=== PATIENT | male | born 1955 | race Caucasian/White ===

== ENCOUNTER 2017-02-23 21:10 | Inpatient (IN) | payer MEDICARE ==
[~2017-02-23] VITALS: Ht 190.5 cm; Wt 100.0 kg
[~2017-02-23 21:10] MED LIST: ARIP15TA3 PO; DIVA500T69 PO; GABA-533 PO; LISI-661 PO; VITAD1000 PO
[2017-02-23 22:22] LABS: BASOPHILS # (AUTO) 0.06 K/uL (0.00-0.20); BASOPHILS % (AUTO) 0.7 % (0.0-2.0); EOSINOPHILS # (AUTO) 0.22 K/uL (0.00-0.70); EOSINOPHILS % (AUTO) 2.72 % (1.0-6.0); HEMATOCRIT 42.8 % (41-53); HEMOGLOBIN 14.3 g/dL (13.5-17.5); LYMPHOCYTES # (AUTO) 3.7 K/uL (1.0-4.8); LYMPHOCYTES % (AUTO) 44.2 % (22.0-44.0); MEAN CORPUSCULAR HEMOGLOBIN 29.5 pg (26.0-34.0); MEAN CORPUSCULAR HGB CONC 33.5 G/dL (31.0-37.0); MEAN CORPUSCULAR VOLUME 88 fL (80-100); MONOCYTES # (AUTO) 0.6 K/uL (0.1-1.0); MONOCYTES % (AUTO) 7.7 % (2.0-9.0); NEUTROPHILS # (AUTO) 3.7 K/uL (1.8-7.7); NEUTROPHILS % (AUTO) 44.7 % (40.0-70.0); PLATELET COUNT (AUTO) 196 K/uL (150-450); RED BLOOD CELL COUNT(AUTO) 4.85 MIL/uL (4.50-5.90); RED CELL DISTRIBUTION WIDTH 14.6 % (11.5-14.5); WHITE BLOOD COUNT (AUTO) 8.3 K/uL (4.5-11.0)
[2017-02-23 22:27] LABS: ANION GAP 7 mmol/L (8-16); CALCIUM, TOTAL 8.5 mg/dL (8.8-10.5); CARBON DIOXIDE 29 mmol/L (22-29); CHLORIDE 107 mmol/L (98-107); CREATININE 0.85 mg/dL (0.60-1.30); GLOMERULAR FILTR. RATE CALC > 60 mL/min (>60); POTASSIUM 3.5 mmol/L (3.5-5.1); SODIUM SERUM 143 mmol/L (136-145); UREA NITROGEN, BLOOD 25 mg/dL (7-18)
[2017-02-23 22:33] LABS: ALANINE AMINOTRANSFERASE 10 U/L (12-78); ALBUMIN 3.4 g/dL (3.4-5.0); ASPARTATE AMINOTRANSFERASE 12 U/L (15-37); BILIRUBIN,TOTAL 0.5 mg/dL (0.1-1.0)
[2017-02-24] MEDS ORDERED: LORazepam 2 MG TABLET PO PRN (03:45)
[2017-02-24] MEDS ORDERED: QUEtiapine FUMARATE 100 MG TABLET PO PRN (03:45)
[2017-02-24] MEDS ORDERED: ZOLPIDEM TARTRATE 10 MG TABLET PO PRN (03:45)
[2017-02-24] MEDS ORDERED: ACETAMINOPHEN 325 MG TABLET PO PRN (10:15)
[2017-02-24] MEDS ORDERED: GuaiFENesin/D-METHORPHAN [SUGAR-FREE] 200-20MG/10 ML SYRUP UDCUP PO PRN (10:15)
[2017-02-24] MEDS ORDERED: LOPERAMIDE HCL 2 MG CAPSULE PO PRN (10:15)
[2017-02-24] MEDS ORDERED: MAG HYDROX/AL HYDROX/SIMETH ES 30 ML SUSPENSION UDCUP PO PRN (10:15)
[2017-02-24] MEDS ORDERED: MAGNESIUM HYDROXIDE SUSPENSION 30 ML UDCUP PO PRN (10:15)
[2017-02-24] MEDS ORDERED: HydrOXYzine PAMOATE 50 MG CAPSULE PO PRN (10:15)
[2017-02-24] MEDS ORDERED: PROMETHAZINE HCL 25 MG TABLET PO PRN (10:15)
[2017-02-24] MEDS: GABAPENTIN 300 MG CAPSULE PO SCH ×3 (12:43→20:45)
[2017-02-24 12:45] VITALS: BP 144/89
[2017-02-24 16:16] VITALS: BP 140/85
[2017-02-24] MEDS: THIAMINE HCL 100 MG TABLET PO SCH (16:26)
[2017-02-24] MEDS ORDERED: *PATIENT'S OWN MED [ENTER DRUG, DOSE, FREQUENCY IN COMMENTS] CLINICAL ONE ×2 (20:15)
[2017-02-24] MEDS: DIVALPROEX SODIUM 500 MG ER TABLET PO SCH (20:45)
[2017-02-25] MEDS ORDERED: PNEUMOCOCCAL VACCINE POLYVALENT 0.5 ML VIAL [PPSV23] IM ONE (05:15)
[2017-02-25 06:02] VITALS: BP 140/89
[2017-02-25 08:31] VITALS: BP 145/96
[2017-02-25] MEDS: NALTREXONE HCL 50 MG TABLET PO SCH (08:45)
[2017-02-25] MEDS: GABAPENTIN 300 MG CAPSULE PO SCH ×4 (08:45→20:34)
[2017-02-25] MEDS: FOLIC ACID 1 MG TABLET PO SCH (08:45)
[2017-02-25] MEDS: THIAMINE HCL 100 MG TABLET PO SCH ×2 (08:45→17:11)
[2017-02-25] MEDS: LISINOPRIL 10 MG TABLET PO SCH (08:45)
[2017-02-25] MEDS: MULTIVITAMINS WITH MINERALS, THERAPEUTIC TABLET PO SCH (08:45)
[2017-02-25] MEDS: ARIPiprazole 15 MG TABLET PO SCH (08:45)
[2017-02-25] MEDS: SOFOSBUVIR PO SCH (08:46)
[2017-02-25] MEDS: LEDIPASVIR PO SCH (08:46)
[2017-02-25] MEDS: DIVALPROEX SODIUM 500 MG ER TABLET PO SCH (20:34)
[2017-02-26 06:05] VITALS: BP 136/87
[2017-02-26 08:11] VITALS: BP 134/72
[2017-02-26] MEDS: NALTREXONE HCL 50 MG TABLET PO SCH (08:29)
[2017-02-26] MEDS: FOLIC ACID 1 MG TABLET PO SCH (08:29)
[2017-02-26] MEDS: GABAPENTIN 300 MG CAPSULE PO SCH ×4 (08:29→20:36)
[2017-02-26] MEDS: MULTIVITAMINS WITH MINERALS, THERAPEUTIC TABLET PO SCH (08:29)
[2017-02-26] MEDS: ARIPiprazole 15 MG TABLET PO SCH (08:29)
[2017-02-26] MEDS: LISINOPRIL 10 MG TABLET PO SCH (08:29)
[2017-02-26] MEDS: THIAMINE HCL 100 MG TABLET PO SCH ×2 (08:29→17:14)
[2017-02-26] MEDS: LEDIPASVIR PO SCH (08:30)
[2017-02-26] MEDS: SOFOSBUVIR PO SCH (08:30)
[2017-02-26] MEDS: CHOLECALCIFEROL (VIT D3) 1,000 UNITS TABLET PO SCH (10:02)
[2017-02-26 17:15] VITALS: BP 123/83
[2017-02-26] MEDS: DIVALPROEX SODIUM 500 MG ER TABLET PO SCH (20:36)
[2017-02-27 02:00] VITALS: BP 110/62
[2017-02-27 08:12] VITALS: BP 126/79
[2017-02-27] MEDS: ARIPiprazole 15 MG TABLET PO SCH (09:00)
[2017-02-27] MEDS: GABAPENTIN 300 MG CAPSULE PO SCH ×4 (09:00→20:35)
[2017-02-27] MEDS: FOLIC ACID 1 MG TABLET PO SCH (09:00)
[2017-02-27] MEDS: THIAMINE HCL 100 MG TABLET PO SCH ×2 (09:00→17:00)
[2017-02-27] MEDS: NALTREXONE HCL 50 MG TABLET PO SCH (09:00)
[2017-02-27] MEDS: CHOLECALCIFEROL (VIT D3) 1,000 UNITS TABLET PO SCH (09:00)
[2017-02-27] MEDS: LISINOPRIL 10 MG TABLET PO SCH (09:00)
[2017-02-27] MEDS: MULTIVITAMINS WITH MINERALS, THERAPEUTIC TABLET PO SCH (09:00)
[2017-02-27] MEDS: SOFOSBUVIR PO SCH (09:01)
[2017-02-27] MEDS: LEDIPASVIR PO SCH (09:01)
[2017-02-27] MEDS ORDERED: NALT50 PO (13:40)
[2017-02-27] MEDS ORDERED: ARIP15TA3 PO (13:40)
[2017-02-27] MEDS ORDERED: DIVA500T52 PO (13:40)
[2017-02-27] MEDS ORDERED: GABA-531 PO (13:40)
[2017-02-27 16:18] VITALS: BP 111/63
[2017-02-27] MEDS: DIVALPROEX SODIUM 500 MG ER TABLET PO SCH (20:35)
[2017-02-28 05:59] VITALS: BP 110/66
[2017-02-28] MEDS: LEDIPASVIR PO SCH (08:54)
[2017-02-28] MEDS: SOFOSBUVIR PO SCH (08:54)
[2017-02-28] MEDS: GABAPENTIN 300 MG CAPSULE PO SCH (09:00)
[2017-02-28] MEDS: THIAMINE HCL 100 MG TABLET PO SCH (09:00)
[2017-02-28] MEDS: NALTREXONE HCL 50 MG TABLET PO SCH (09:00)
[2017-02-28] MEDS: MULTIVITAMINS WITH MINERALS, THERAPEUTIC TABLET PO SCH (09:00)
[2017-02-28] MEDS: ARIPiprazole 15 MG TABLET PO SCH (09:00)
[2017-02-28] MEDS: FOLIC ACID 1 MG TABLET PO SCH (09:00)
[2017-02-28] MEDS: CHOLECALCIFEROL (VIT D3) 1,000 UNITS TABLET PO SCH (09:00)
[2017-02-28] MEDS: LISINOPRIL 10 MG TABLET PO SCH (09:00)
[2017-02-28 09:43] VITALS: BP 138/68
[2017-02-28] MEDS ORDERED: GABA-531 PO (10:25)
[2017-02-28] MEDS ORDERED: LEDI1TAB PO (10:25)
[2017-02-28] MEDS ORDERED: NALT50TA10 PO (10:26)
== END 2017-02-28 13:35 | disposition home or self-care (01) | DRG 885 ==
LOC: EMS 21:15 → B2X 02-24 07:55 → B3A 02-24 07:55 → B2X 02-24 09:29
PROVIDERS: ATTEND Psychiatry & Neurology Psychiatry
PROC: GZHZZZZ Group Psychotherapy (ICD-10-PCS; principal; 2017-02-24)
PROC: GZ51ZZZ Individual Psychotherapy, Behavioral (ICD-10-PCS; 2017-02-24)
PROC: 3E0234Z Introduction of Serum, Toxoid and Vaccine into Muscle, Percutaneous Approach (ICD-10-PCS; 2017-02-24)
DX: F25.9 Schizoaffective disorder, unspecified (principal); R45.851 Suicidal ideations; I10 Essential (primary) hypertension; F17.210 Nicotine dependence, cigarettes, uncomplicated; B19.20 Unspecified viral hepatitis C without hepatic coma; J44.9 Chronic obstructive pulmonary disease, unspecified; G89.29 Other chronic pain; M23.207 Derangement of unspecified meniscus due to old tear or injury, left knee; F14.90 Cocaine use, unspecified, uncomplicated; F32.9 Major depressive disorder, single episode, unspecified; G62.9 Polyneuropathy, unspecified; Z53.29 Procedure and treatment not carried out because of patient's decision for other reasons; Z91.14 Patient's other noncompliance with medication regimen; Z90.89 Acquired absence of other organs; Z28.21 Immunization not carried out because of patient refusal; Z79.899 Other long term (current) drug therapy; Z88.8 Allergy status to other drugs, medicaments and biological substances
CPT/HCPCS: 82306; 93005; 99285; G0480

== ENCOUNTER 2017-06-01 14:07 | Emergency (ER) | payer MEDICARE ==
[~2017-06-01] VITALS: Ht 190.5 cm; Wt 100.0 kg
[~2017-06-01 14:07] MED LIST changes: -ARIP15TA3 PO; +DIVA500T52 PO; -DIVA500T69 PO; +GABA-531 PO; -GABA-533 PO; -LISI-661 PO; +NALT50 PO; +OLAN10TA22 PO; +OLAN10TA3 PO; -VITAD1000 PO
[2017-06-01 14:36] LABS: BASOPHILS # (AUTO) 0.05 K/uL (0.00-0.20); BASOPHILS % (AUTO) 0.7 % (0.0-2.0); EOSINOPHILS # (AUTO) 0.18 K/uL (0.00-0.70); HEMATOCRIT 47.2 % (41-53); HEMOGLOBIN 15.7 g/dL (13.5-17.5); LYMPHOCYTES # (AUTO) 2.7 K/uL (1.0-4.8); LYMPHOCYTES % (AUTO) 35.5 % (22.0-44.0); MEAN CORPUSCULAR HEMOGLOBIN 29.9 pg (26.0-34.0); MEAN CORPUSCULAR HGB CONC 33.3 G/dL (31.0-37.0); MEAN CORPUSCULAR VOLUME 90 fL (80-100); MONOCYTES # (AUTO) 0.7 K/uL (0.1-1.0); MONOCYTES % (AUTO) 8.8 % (2.0-9.0); NEUTROPHILS % (AUTO) 52.5 % (40.0-70.0); PLATELET COUNT (AUTO) 224 K/uL (150-450); RED BLOOD CELL COUNT(AUTO) 5.27 MIL/uL (4.50-5.90); RED CELL DISTRIBUTION WIDTH 14.1 % (11.5-14.5); WHITE BLOOD COUNT (AUTO) 7.6 K/uL (4.5-11.0)
[2017-06-01 14:46] LABS: ANION GAP 6 mmol/L (8-16); CALCIUM, TOTAL 9.4 mg/dL (8.8-10.5); CARBON DIOXIDE 27 mmol/L (22-29); CHLORIDE 107 mmol/L (98-107); CREATININE 0.85 mg/dL (0.60-1.30); GLOMERULAR FILTR. RATE CALC > 60 mL/min (>60); SODIUM SERUM 140 mmol/L (136-145); UREA NITROGEN, BLOOD 24 mg/dL (7-18)
[2017-06-01 14:52] LABS: ALANINE AMINOTRANSFERASE 19 U/L (12-78); ALBUMIN 3.4 g/dL (3.4-5.0); ASPARTATE AMINOTRANSFERASE 13 U/L (15-37); BILIRUBIN,TOTAL 0.6 mg/dL (0.1-1.0); TOTAL PROTEIN, SERUM 7.3 g/dL (6.4-8.2); VALPROIC ACID < 3 mcg/mL (50-100)
[2017-06-01 17:06] VITALS: BP 132/80
== END 2017-06-01 17:35 | disposition home or self-care (01) ==
LOC: EMS 14:09
DX: F20.9 Schizophrenia, unspecified (principal); B19.20 Unspecified viral hepatitis C without hepatic coma; G62.9 Polyneuropathy, unspecified; I10 Essential (primary) hypertension; G89.29 Other chronic pain; M54.9 Dorsalgia, unspecified; M87.9 Osteonecrosis, unspecified; F17.210 Nicotine dependence, cigarettes, uncomplicated; J44.9 Chronic obstructive pulmonary disease, unspecified; Z59.9 Problem related to housing and economic circumstances, unspecified; Z88.8 Allergy status to other drugs, medicaments and biological substances; Z91.018 Allergy to other foods
CPT/HCPCS: 36415; 80053; 80164; 80307; 85025; 93005; 99285; G0480

== ENCOUNTER 2018-04-11 17:49 | Inpatient (IN) | payer MEDICARE ==
[~2018-04-11] VITALS: Ht 190.5 cm; Wt 107.7 kg
[~2018-04-11 17:49] MED LIST changes: +DIVA250T45 PO; -DIVA500T52 PO; -GABA-531 PO; -NALT50 PO; +NALT50TA6 PO; -OLAN10TA3 PO; +OLAN15TA5 PO
[2018-04-11] MEDS ORDERED: DILTIAZEM HCL 5 MG/ML 5 ML VIAL IVP ONE (18:15)
[2018-04-11] MEDS ORDERED: SODIUM CHLORIDE 0.9% 1,000 ML IV ONE (18:15)
[2018-04-11] MEDS ORDERED: DILTIAZEM HCL 125 MG in DEXTROSE 5%-WATER 100 ML IV PRN (18:15)
[2018-04-11 18:36] LABS: EOSINOPHILS % (AUTO) 2.6 % (1.0-6.0); HEMATOCRIT 45.7 % (41-53); HEMOGLOBIN 15.8 g/dL (13.5-17.5); LYMPHOCYTES # (AUTO) 3.6 K/uL (1.0-4.8); LYMPHOCYTES % (AUTO) 32.9 % (22.0-44.0); MEAN CORPUSCULAR HGB CONC 34.6 G/dL (31.0-37.0); MEAN CORPUSCULAR VOLUME 87 fL (80-100); MONOCYTES # (AUTO) 1.1 K/uL (0.1-1.0); MONOCYTES % (AUTO) 9.7 % (2.0-9.0); NEUTROPHILS % (AUTO) 53.8 % (40.0-70.0); PLATELET COUNT (AUTO) 233 K/uL (150-450); RED BLOOD CELL COUNT(AUTO) 5.27 MIL/uL (4.50-5.90); RED CELL DISTRIBUTION WIDTH 14.7 % (11.5-14.5)
[2018-04-11 18:51] LABS: ALANINE AMINOTRANSFERASE 26 U/L (12-78); ALKALINE PHOSPHATASE 73 U/L (46-116); ANION GAP 11 mmol/L (8-16); ASPARTATE AMINOTRANSFERASE 30 U/L (15-37); BILIRUBIN,TOTAL 2.4 mg/dL (0.1-1.0); CALCIUM, TOTAL 8.9 mg/dL (8.8-10.5); CARBON DIOXIDE 26 mmol/L (22-29); CHLORIDE 101 mmol/L (98-107); CREATININE 1.85 mg/dL (0.60-1.30); GLOMERULAR FILTR. RATE CALC 37 mL/min (>60); GLUCOSE,RANDOM 116 mg/dL (70-110); SODIUM SERUM 138 mmol/L (136-145); UREA NITROGEN, BLOOD 21 mg/dL (7-18)
[2018-04-11 18:54] LABS: POTASSIUM 2.8 mmol/L (3.5-5.1)
[2018-04-11] MEDS ORDERED: POTASSIUM CHLORIDE 20 MEQ ER TABLET ONE (19:22)
[2018-04-11] MEDS ORDERED: POTASSIUM CHLORIDE 20 MEQ ER TABLET PO ONE (19:30)
[2018-04-11] MEDS ORDERED: ALBUTEROL SULFATE 2.5 MG/0.5 ML NEB SOLUTION NEB PRN (21:30)
[2018-04-11] MEDS ORDERED: BISACODYL 10 MG RECTAL RECTAL SUPPOSITORY PR PRN (21:30)
[2018-04-11] MEDS ORDERED: ACETAMINOPHEN 325 MG TABLET PO PRN (21:30)
[2018-04-11 21:47] LABS: VALPROIC ACID < 3 mcg/mL (50-100)
[2018-04-11] MEDS ORDERED: DILTIAZEM HCL 125 MG in DEXTROSE 5%-WATER 100 ML IV SCH (22:00)
[2018-04-11] MEDS: SODIUM CHLORIDE 0.9% 1,000 ML IV SCH (22:01)
[2018-04-11 22:40] VITALS: BP 115/73
[2018-04-11] MEDS: LORazepam 2 MG/ML VIAL IVP PRN (23:43)
[2018-04-12 00:15] VITALS: BP 115/73
[2018-04-12 04:41] VITALS: BP 115/58
[2018-04-12] MEDS: SODIUM CHLORIDE 0.9% 1,000 ML IV SCH ×2 (08:32→18:20)
[2018-04-12] MEDS: DOCUSATE SODIUM 100 MG CAPSULE PO SCH ×2 (08:32→21:00)
[2018-04-12] MEDS: PANTOPRAZOLE SODIUM 40 MG DR TABLET PO SCH (08:32)
[2018-04-12 09:30] LABS: BASOPHILS % (AUTO) 0.6 % (0.0-2.0); EOSINOPHILS % (AUTO) 4.5 % (1.0-6.0); HEMATOCRIT 40.3 % (41-53); HEMOGLOBIN 13.7 g/dL (13.5-17.5); LYMPHOCYTES # (AUTO) 2.3 K/uL (1.0-4.8); LYMPHOCYTES % (AUTO) 36.9 % (22.0-44.0); MEAN CORPUSCULAR HEMOGLOBIN 29.5 pg (26.0-34.0); MEAN CORPUSCULAR VOLUME 87 fL (80-100); MONOCYTES # (AUTO) 0.5 K/uL (0.1-1.0); MONOCYTES % (AUTO) 8.8 % (2.0-9.0); NEUTROPHILS % (AUTO) 49.2 % (40.0-70.0); PLATELET COUNT (AUTO) 171 K/uL (150-450); RED BLOOD CELL COUNT(AUTO) 4.64 MIL/uL (4.50-5.90); RED CELL DISTRIBUTION WIDTH 14.3 % (11.5-14.5)
[2018-04-12 09:42] LABS: ANION GAP 8 mmol/L (8-16); CARBON DIOXIDE 27 mmol/L (22-29); CHLORIDE 107 mmol/L (98-107); GLOMERULAR FILTR. RATE CALC > 60 mL/min (>60); GLUCOSE,RANDOM 92 mg/dL (70-110); SODIUM SERUM 142 mmol/L (136-145); UREA NITROGEN, BLOOD 21 mg/dL (7-18)
[2018-04-12 09:49] LABS: POTASSIUM 2.7 mmol/L (3.5-5.1)
[2018-04-12] MEDS ORDERED: POTASSIUM CHLORIDE 20 MEQ ER TABLET PO ONE (10:00)
[2018-04-12] MEDS: LORazepam 2 MG/ML VIAL IVP PRN ×2 (10:26→19:19)
[2018-04-12 19:20] VITALS: BP 123/60
[2018-04-12 19:30] VITALS: BP 127/59
[2018-04-12 19:39] VITALS: BP 118/77
[2018-04-12] MEDS: DIVALPROEX SODIUM 250 MG ER TABLET PO SCH (21:00)
[2018-04-12] MEDS: OLANZapine 10 MG RAPDIS TABLET PO SCH (21:00)
[2018-04-13 00:50] VITALS: BP 130/75
[2018-04-13] MEDS: SODIUM CHLORIDE 0.9% 1,000 ML IV SCH ×2 (03:30→13:30)
[2018-04-13 04:48] VITALS: BP 123/67
[2018-04-13] MEDS ORDERED: SODIUM CHLORIDE 0.9% 250 ML IV ONE (07:13)
[2018-04-13 08:06] VITALS: BP 126/70
[2018-04-13] MEDS: PANTOPRAZOLE SODIUM 40 MG DR TABLET PO SCH (09:00)
[2018-04-13] MEDS: DOCUSATE SODIUM 100 MG CAPSULE PO SCH ×2 (09:00→20:04)
[2018-04-13 11:34] VITALS: BP 135/95
[2018-04-13] MEDS ORDERED: QUEtiapine FUMARATE 25 MG TABLET PO SCH (13:30)
[2018-04-13] MEDS ORDERED: POTASSIUM CHL 10 MEQ/WATER 50 ML IV PRN (13:30)
[2018-04-13] MEDS: ASPIRIN 81 MG CHEWABLE TABLET PO SCH (14:22)
[2018-04-13] MEDS: MULTIVITAMINS WITH MINERALS, THERAPEUTIC TABLET PO SCH (14:22)
[2018-04-13] MEDS: METOPROLOL TARTRATE 25 MG TABLET PO SCH ×2 (14:22→20:09)
[2018-04-13 15:22] LABS: ANION GAP 6 mmol/L (8-16); CARBON DIOXIDE 28 mmol/L (22-29); CHLORIDE 109 mmol/L (98-107); CREATININE 0.89 mg/dL (0.60-1.30); GLOMERULAR FILTR. RATE CALC > 60 mL/min (>60); GLUCOSE,RANDOM 119 mg/dL (70-110); POTASSIUM 3.4 mmol/L (3.5-5.1); SODIUM SERUM 143 mmol/L (136-145); UREA NITROGEN, BLOOD 13 mg/dL (7-18)
[2018-04-13 15:34] VITALS: BP 126/74
[2018-04-13] MEDS: POTASSIUM CHLORIDE 20 MEQ ER TABLET PO PRN (15:50)
[2018-04-13 19:30] VITALS: BP 132/94
[2018-04-13] MEDS: DIVALPROEX SODIUM 250 MG ER TABLET PO SCH (20:08)
[2018-04-13] MEDS: LORazepam 2 MG/ML VIAL IVP PRN (20:10)
[2018-04-13] MEDS: OLANZapine 10 MG RAPDIS TABLET PO SCH (20:10)
[2018-04-14] MEDS: SODIUM CHLORIDE 0.9% 1,000 ML IV SCH ×3 (00:13→21:17)
[2018-04-14] MEDS: LORazepam 2 MG/ML VIAL IVP PRN ×2 (03:33→08:09)
[2018-04-14 04:19] VITALS: BP 143/93
[2018-04-14 07:36] VITALS: BP 117/88
[2018-04-14] MEDS: ASPIRIN 81 MG CHEWABLE TABLET PO SCH (08:08)
[2018-04-14] MEDS: DOCUSATE SODIUM 100 MG CAPSULE PO SCH ×2 (08:08→21:00)
[2018-04-14] MEDS: METOPROLOL TARTRATE 25 MG TABLET PO SCH ×2 (08:09→21:00)
[2018-04-14] MEDS: MULTIVITAMINS WITH MINERALS, THERAPEUTIC TABLET PO SCH (08:09)
[2018-04-14] MEDS: PANTOPRAZOLE SODIUM 40 MG DR TABLET PO SCH (08:09)
[2018-04-14 11:06] VITALS: BP 124/80
[2018-04-14 19:29] VITALS: BP 157/90
[2018-04-14] MEDS: DIVALPROEX SODIUM 250 MG ER TABLET PO SCH (21:00)
[2018-04-14] MEDS: OLANZapine 10 MG RAPDIS TABLET PO SCH (21:00)
[2018-04-15 00:21] VITALS: BP 152/88
[2018-04-15] MEDS: SODIUM CHLORIDE 0.9% 1,000 ML IV SCH ×2 (05:30→15:34)
[2018-04-15 07:09] VITALS: BP 130/65
[2018-04-15] MEDS ORDERED: LORazepam 2 MG/ML VIAL IM ONE (08:45)
[2018-04-15] MEDS ORDERED: DiphenhydrAMINE HCL 50 MG/ML VIAL IM ONE (08:45)
[2018-04-15] MEDS: DOCUSATE SODIUM 100 MG CAPSULE PO SCH ×2 (10:38→20:55)
[2018-04-15] MEDS: POTASSIUM CHLORIDE 20 MEQ ER TABLET PO PRN (10:38)
[2018-04-15] MEDS: MULTIVITAMINS WITH MINERALS, THERAPEUTIC TABLET PO SCH (10:39)
[2018-04-15] MEDS: ASPIRIN 81 MG CHEWABLE TABLET PO SCH (10:39)
[2018-04-15] MEDS: PANTOPRAZOLE SODIUM 40 MG DR TABLET PO SCH (10:39)
[2018-04-15] MEDS: METOPROLOL TARTRATE 25 MG TABLET PO SCH ×2 (10:39→20:57)
[2018-04-15 12:08] VITALS: BP 140/66
[2018-04-15 15:14] VITALS: BP 151/87
[2018-04-15 19:30] VITALS: BP 142/80
[2018-04-15] MEDS: DIVALPROEX SODIUM 250 MG ER TABLET PO SCH (20:56)
[2018-04-15] MEDS: OLANZapine 10 MG RAPDIS TABLET PO SCH (20:57)
[2018-04-16] MEDS: LORazepam 2 MG/ML VIAL IVP PRN (00:29)
[2018-04-16 01:31] VITALS: BP 140/62
[2018-04-16] MEDS: SODIUM CHLORIDE 0.9% 1,000 ML IV SCH ×2 (02:20→20:00)
[2018-04-16 05:00] VITALS: BP 145/72
[2018-04-16 06:32] LABS: BASOPHILS % (AUTO) 0.5 % (0.0-2.0); EOSINOPHILS % (AUTO) 2.7 % (1.0-6.0); HEMATOCRIT 42.2 % (41-53); LYMPHOCYTES # (AUTO) 3.3 K/uL (1.0-4.8); LYMPHOCYTES % (AUTO) 37.6 % (22.0-44.0); MEAN CORPUSCULAR HGB CONC 35.5 G/dL (31.0-37.0); MEAN CORPUSCULAR VOLUME 87 fL (80-100); NEUTROPHILS # (AUTO) 4.2 K/uL (1.8-7.7); NEUTROPHILS % (AUTO) 48.2 % (40.0-70.0); PLATELET COUNT (AUTO) 152 K/uL (150-450); RED BLOOD CELL COUNT(AUTO) 4.83 MIL/uL (4.50-5.90); RED CELL DISTRIBUTION WIDTH 14.7 % (11.5-14.5)
[2018-04-16 07:00] LABS: ANION GAP 9 mmol/L (8-16); CALCIUM, TOTAL 8.1 mg/dL (8.8-10.5); CARBON DIOXIDE 24 mmol/L (22-29); CHLORIDE 109 mmol/L (98-107); CREATININE 0.87 mg/dL (0.60-1.30); GLOMERULAR FILTR. RATE CALC > 60 mL/min (>60); GLUCOSE,RANDOM 88 mg/dL (70-110); POTASSIUM 4.2 mmol/L (3.5-5.1); SODIUM SERUM 142 mmol/L (136-145); UREA NITROGEN, BLOOD 13 mg/dL (7-18)
[2018-04-16] MEDS: MULTIVITAMINS WITH MINERALS, THERAPEUTIC TABLET PO SCH ×2 (09:00→09:58)
[2018-04-16] MEDS: METOPROLOL TARTRATE 25 MG TABLET PO SCH ×3 (09:00→21:00)
[2018-04-16] MEDS: ASPIRIN 81 MG CHEWABLE TABLET PO SCH ×2 (09:00→09:58)
[2018-04-16] MEDS: PANTOPRAZOLE SODIUM 40 MG DR TABLET PO SCH ×2 (09:00→09:58)
[2018-04-16] MEDS: DOCUSATE SODIUM 100 MG CAPSULE PO SCH ×3 (09:00→21:00)
[2018-04-16 12:00] VITALS: BP 129/67
[2018-04-16 15:31] VITALS: BP 133/71
[2018-04-16] MEDS: DIVALPROEX SODIUM 250 MG ER TABLET PO SCH (21:00)
[2018-04-16] MEDS ORDERED: OLANZapine 10 MG RAPDIS TABLET PO SCH (21:00)
[2018-04-16 23:34] VITALS: BP 130/58
[2018-04-17 04:49] VITALS: BP 113/76
[2018-04-17 07:46] VITALS: BP 142/98
[2018-04-17] MEDS: PANTOPRAZOLE SODIUM 40 MG DR TABLET PO SCH (09:28)
[2018-04-17] MEDS: METOPROLOL TARTRATE 25 MG TABLET PO SCH (09:28)
[2018-04-17] MEDS: MULTIVITAMINS WITH MINERALS, THERAPEUTIC TABLET PO SCH (09:28)
[2018-04-17] MEDS: ASPIRIN 81 MG CHEWABLE TABLET PO SCH (09:28)
[2018-04-17] MEDS: DOCUSATE SODIUM 100 MG CAPSULE PO SCH (09:28)
[2018-04-17] MEDS: SODIUM CHLORIDE 0.9% 1,000 ML IV SCH (09:37)
[2018-04-17 11:44] VITALS: BP 138/94
== END 2018-04-17 14:25 | DRG 308 ==
LOC: EMS 17:50 → 5N 21:10 → 6N 04-16 05:18
PROVIDERS: ADMIT Internal Medicine; ATTEND Internal Medicine
DX: I48.91 Unspecified atrial fibrillation (principal); N17.0 Acute kidney failure with tubular necrosis; F14.20 Cocaine dependence, uncomplicated; E87.6 Hypokalemia; G89.29 Other chronic pain; M54.9 Dorsalgia, unspecified; F25.0 Schizoaffective disorder, bipolar type; F41.9 Anxiety disorder, unspecified; I11.9 Hypertensive heart disease without heart failure; J44.9 Chronic obstructive pulmonary disease, unspecified; F17.210 Nicotine dependence, cigarettes, uncomplicated; Z91.19 Patient's noncompliance with other medical treatment and regimen; Z59.0 Homelessness; Z90.89 Acquired absence of other organs; Z88.8 Allergy status to other drugs, medicaments and biological substances; Z91.018 Allergy to other foods; Z79.899 Other long term (current) drug therapy
CPT/HCPCS: 83735; 84132; 93005; 93306; 96365; 96366; 96375; 99291; G0480; J1200; J2060; J3230; J3490; J7030; J7050; J7060

== ENCOUNTER 2018-04-17 14:25 | Inpatient (IN) | payer MEDICARE ==
[~2018-04-17] VITALS: Ht 190.5 cm; Wt 104.4 kg
[2018-04-17] MEDS ORDERED: ChlorproMAZINE HCL 100 MG TABLET PO PRN (16:00)
[2018-04-17] MEDS ORDERED: LORazepam 2 MG TABLET PO PRN (16:00)
[2018-04-17] MEDS ORDERED: ZOLPIDEM TARTRATE 10 MG TABLET PO PRN (16:00)
[2018-04-17] MEDS ORDERED: BISACODYL 10 MG RECTAL RECTAL SUPPOSITORY PR PRN (16:15)
[2018-04-17] MEDS ORDERED: ALBUTEROL SULFATE 2.5 MG/0.5 ML NEB SOLUTION NEB PRN (16:15)
[2018-04-17] MEDS ORDERED: DOCUSATE SODIUM 100 MG CAPSULE PO PRN (16:15)
[2018-04-17] MEDS ORDERED: ACETAMINOPHEN 325 MG TABLET PO PRN (16:15)
[2018-04-17 16:54] VITALS: BP 122/94
[2018-04-17] MEDS: DIVALPROEX SODIUM 250 MG ER TABLET PO SCH (20:08)
[2018-04-17] MEDS: OLANZapine 10 MG TABLET PO SCH (20:08)
[2018-04-17 20:17] VITALS: BP 115/82
[2018-04-17] MEDS ORDERED: METOPROLOL TARTRATE 25 MG TABLET PO SCH (21:00)
[2018-04-17 22:10] VITALS: BP 152/110
[2018-04-17] MEDS ORDERED: CARVEDILOL 3.125 MG TABLET PO SCH (22:30)
[2018-04-17] MEDS ORDERED: CloNIDine HCL 0.1 MG TABLET PO PRN (22:30)
[2018-04-17] MEDS ORDERED: 0.9% SODIUM CHLORIDE 5 ML NEB SOLUTION NEB ONE (22:32)
[2018-04-17] MEDS ORDERED: LEVALBUTEROL HCL 0.63 MG/3 ML NEB SOLUTION NEB PRN (23:30)
[2018-04-17 23:36] VITALS: BP 120/59
[2018-04-18 06:20] LABS: BASOPHILS % (AUTO) 0.9 % (0.0-2.0); EOSINOPHILS % (AUTO) 4.2 % (1.0-6.0); HEMATOCRIT 41.7 % (41-53); HEMOGLOBIN 14.4 g/dL (13.5-17.5); LYMPHOCYTES # (AUTO) 2.8 K/uL (1.0-4.8); LYMPHOCYTES % (AUTO) 44.8 % (22.0-44.0); MEAN CORPUSCULAR HEMOGLOBIN 29.8 pg (26.0-34.0); MEAN CORPUSCULAR HGB CONC 34.5 G/dL (31.0-37.0); MEAN CORPUSCULAR VOLUME 87 fL (80-100); MONOCYTES # (AUTO) 0.6 K/uL (0.1-1.0); MONOCYTES % (AUTO) 10.5 % (2.0-9.0); NEUTROPHILS # (AUTO) 2.5 K/uL (1.8-7.7); NEUTROPHILS % (AUTO) 39.6 % (40.0-70.0); PLATELET COUNT (AUTO) 147 K/uL (150-450); RED BLOOD CELL COUNT(AUTO) 4.83 MIL/uL (4.50-5.90); RED CELL DISTRIBUTION WIDTH 14.9 % (11.5-14.5)
[2018-04-18 06:35] LABS: ALANINE AMINOTRANSFERASE 13 U/L (12-78); ALBUMIN 2.8 g/dL (3.4-5.0); ALKALINE PHOSPHATASE 47 U/L (46-116); ANION GAP 9 mmol/L (8-16); ASPARTATE AMINOTRANSFERASE 15 U/L (15-37); BILIRUBIN,TOTAL 0.8 mg/dL (0.1-1.0); CALCIUM, TOTAL 8.2 mg/dL (8.8-10.5); CARBON DIOXIDE 26 mmol/L (22-29); CHLORIDE 108 mmol/L (98-107); CREATININE 0.82 mg/dL (0.60-1.30); GLOMERULAR FILTR. RATE CALC > 60 mL/min (>60); GLUCOSE,RANDOM 92 mg/dL (70-110); POTASSIUM 3.7 mmol/L (3.5-5.1); SODIUM SERUM 143 mmol/L (136-145); TOTAL PROTEIN, SERUM 6.6 g/dL (6.4-8.2); UREA NITROGEN, BLOOD 15 mg/dL (7-18)
[2018-04-18 08:44] VITALS: BP 135/86
[2018-04-18] MEDS ORDERED: ASPIRIN 81 MG CHEWABLE TABLET PO SCH (09:00)
[2018-04-18] MEDS: METOPROLOL TARTRATE 25 MG TABLET PO SCH ×2 (09:00→16:39)
[2018-04-18] MEDS: PANTOPRAZOLE SODIUM 40 MG DR TABLET PO SCH (09:01)
[2018-04-18] MEDS: MULTIVITAMINS WITH MINERALS, THERAPEUTIC TABLET PO SCH (09:01)
[2018-04-18] MEDS ORDERED: IBUPROFEN 400 MG TABLET PO PRN (16:15)
[2018-04-18] MEDS ORDERED: ACETAMINOPHEN 325 MG TABLET PO PRN (16:15)
[2018-04-18] MEDS: DIVALPROEX SODIUM 250 MG ER TABLET PO SCH (20:08)
[2018-04-18] MEDS: OLANZapine 10 MG TABLET PO SCH (20:36)
[2018-04-18 21:17] VITALS: BP 119/74
[2018-04-19 03:25] VITALS: BP 105/55
[2018-04-19 06:02] LABS: HEMOGLOBIN A1C 6.1 % (4.5-6.2)
[2018-04-19 06:12] LABS: THYROID STIMULATING HORMONE 2.5 uIU/mL (0.36-3.74)
[2018-04-19 09:36] VITALS: BP 120/61
[2018-04-19] MEDS: METOPROLOL TARTRATE 25 MG TABLET PO SCH ×2 (09:39→16:58)
[2018-04-19] MEDS: ASPIRIN 81 MG CHEWABLE TABLET PO SCH (09:39)
[2018-04-19] MEDS: MULTIVITAMINS WITH MINERALS, THERAPEUTIC TABLET PO SCH (09:40)
[2018-04-19] MEDS: PANTOPRAZOLE SODIUM 40 MG DR TABLET PO SCH (09:40)
[2018-04-19 18:37] VITALS: BP 127/88
[2018-04-19] MEDS: OLANZapine 10 MG TABLET PO SCH (21:12)
[2018-04-19] MEDS: DIVALPROEX SODIUM 250 MG ER TABLET PO SCH (21:12)
[2018-04-20] MEDS: ASPIRIN 81 MG CHEWABLE TABLET PO SCH (08:26)
[2018-04-20] MEDS: MULTIVITAMINS WITH MINERALS, THERAPEUTIC TABLET PO SCH (08:27)
[2018-04-20] MEDS: METOPROLOL TARTRATE 25 MG TABLET PO SCH ×2 (08:27→16:09)
[2018-04-20] MEDS: PANTOPRAZOLE SODIUM 40 MG DR TABLET PO SCH (08:27)
[2018-04-20 10:52] VITALS: BP 118/76
[2018-04-20 16:37] VITALS: BP 117/92
[2018-04-20] MEDS: OLANZapine 10 MG TABLET PO SCH (20:01)
[2018-04-20] MEDS: DIVALPROEX SODIUM 250 MG ER TABLET PO SCH (20:02)
[2018-04-21] MEDS: MULTIVITAMINS WITH MINERALS, THERAPEUTIC TABLET PO SCH (08:12)
[2018-04-21] MEDS: ASPIRIN 81 MG CHEWABLE TABLET PO SCH (08:12)
[2018-04-21] MEDS: PANTOPRAZOLE SODIUM 40 MG DR TABLET PO SCH (08:12)
[2018-04-21] MEDS: METOPROLOL TARTRATE 25 MG TABLET PO SCH (08:12)
[2018-04-21] MEDS ORDERED: OLAN10TA3 PO (10:52)
[2018-04-21] MEDS ORDERED: ASPI-556 PO (10:57)
[2018-04-21] MEDS ORDERED: METO25 PO (11:19)
[2018-04-21] MEDS ORDERED: MULT-1239 PO (11:20)
[2018-04-21] MEDS ORDERED: PANT40TA25 PO (11:21)
== END 2018-04-21 14:20 | disposition home or self-care (01) | DRG 885 ==
LOC: 3EX 14:25
PROVIDERS: ADMIT Psychiatry & Neurology Psychiatry; ATTEND Psychiatry & Neurology Psychiatry
DX: F25.0 Schizoaffective disorder, bipolar type (principal); E43 Unspecified severe protein-calorie malnutrition; R45.851 Suicidal ideations; F14.20 Cocaine dependence, uncomplicated; B18.2 Chronic viral hepatitis C; D69.6 Thrombocytopenia, unspecified; Z68.28 Body mass index [BMI] 28.0-28.9, adult; F10.10 Alcohol abuse, uncomplicated; F41.9 Anxiety disorder, unspecified; I10 Essential (primary) hypertension; I48.0 Paroxysmal atrial fibrillation; J44.9 Chronic obstructive pulmonary disease, unspecified; Z59.0 Homelessness; Z82.49 Family history of ischemic heart disease and other diseases of the circulatory system; Z91.5 Personal history of self-harm; Z91.19 Patient's noncompliance with other medical treatment and regimen; F19.21 Other psychoactive substance dependence, in remission; Z88.8 Allergy status to other drugs, medicaments and biological substances; Z91.018 Allergy to other foods
CPT/HCPCS: 83036; 84443; 87081; 93005; 94640

== ENCOUNTER 2018-07-08 17:16 | Inpatient (IN) | payer MEDICARE ==
[~2018-07-08] VITALS: Ht 190.5 cm; Wt 109.8 kg
[~2018-07-08 17:16] MED LIST changes: +ASPI-556 PO; +METO25 PO; +MULT-1239 PO; -NALT50TA6 PO; -OLAN10TA22 PO; +OLAN10TA3 PO; -OLAN15TA5 PO; +PANT40TA25 PO
[2018-07-08 18:21] LABS: BASOPHILS % (AUTO) 0.6 % (0.0-2.0); EOSINOPHILS % (AUTO) 2.1 % (1.0-6.0); HEMATOCRIT 45.7 % (41-53); HEMOGLOBIN 15.6 g/dL (13.5-17.5); LYMPHOCYTES # (AUTO) 2.8 K/uL (1.0-4.8); LYMPHOCYTES % (AUTO) 33.2 % (22.0-44.0); MEAN CORPUSCULAR HEMOGLOBIN 29.4 pg (26.0-34.0); MEAN CORPUSCULAR HGB CONC 34.2 G/dL (31.0-37.0); MEAN CORPUSCULAR VOLUME 86 fL (80-100); MONOCYTES # (AUTO) 0.8 K/uL (0.1-1.0); MONOCYTES % (AUTO) 9.8 % (2.0-9.0); NEUTROPHILS # (AUTO) 4.5 K/uL (1.8-7.7); NEUTROPHILS % (AUTO) 54.3 % (40.0-70.0); PLATELET COUNT (AUTO) 245 K/uL (150-450); RED BLOOD CELL COUNT(AUTO) 5.32 MIL/uL (4.50-5.90); RED CELL DISTRIBUTION WIDTH 14.1 % (11.5-14.5)
[2018-07-08 18:39] LABS: ALANINE AMINOTRANSFERASE 22 U/L (12-78); ALBUMIN 3.8 g/dL (3.4-5.0); ALKALINE PHOSPHATASE 86 U/L (46-116); ANION GAP 7 mmol/L (8-16); ASPARTATE AMINOTRANSFERASE 24 U/L (15-37); BILIRUBIN,TOTAL 2.2 mg/dL (0.1-1.0); CALCIUM, TOTAL 9.6 mg/dL (8.8-10.5); CARBON DIOXIDE 30 mmol/L (22-29); CHLORIDE 102 mmol/L (98-107); CREATININE 1.06 mg/dL (0.60-1.30); GLOMERULAR FILTR. RATE CALC > 60 mL/min (>60); GLUCOSE,RANDOM 120 mg/dL (70-110); SODIUM SERUM 139 mmol/L (136-145); TOTAL PROTEIN, SERUM 8.4 g/dL (6.4-8.2); UREA NITROGEN, BLOOD 9 mg/dL (7-18)
[2018-07-08 19:00] LABS: VALPROIC ACID < 3 mcg/mL (50-100)
[2018-07-08] MEDS ORDERED: ACETAMINOPHEN 325 MG TABLET PO PRN (19:00)
[2018-07-08] MEDS ORDERED: ZOLPIDEM TARTRATE 10 MG TABLET PO PRN (19:00)
[2018-07-08] MEDS ORDERED: IBUPROFEN 400 MG TABLET PO PRN (19:00)
[2018-07-08 19:13] LABS: AMPHET/METH SCREEN,URINE NEGATIVE (NEGATIVE); BARBITURATE SCREEN, URINE NEGATIVE (NEGATIVE); BENZODIAZEPINES SCREEN,URINE NEGATIVE (NEGATIVE); CANNABINOID SCREEN,URINE NEGATIVE (NEGATIVE); COCAINE SCREEN,URINE NEGATIVE (NEGATIVE); METHADONE SCREEN, URINE NEGATIVE (NEGATIVE); OPIATE SCREEN,URINE NEGATIVE (NEGATIVE)
[2018-07-08] MEDS ORDERED: POTASSIUM CHLORIDE 20 MEQ ER TABLET PO ONE (19:15)
[2018-07-08 19:28] LABS: PHENCYCLIDINE SCREEN,URINE NEGATIVE (NEGATIVE)
[2018-07-08] MEDS: LORazepam 2 MG TABLET PO PRN (21:13)
[2018-07-08] MEDS: OLANZapine 5 MG RAPDIS TABLET PO PRN (21:13)
[2018-07-09] MEDS: LORazepam 2 MG TABLET PO PRN ×3 (01:44→22:29)
[2018-07-09] MEDS ORDERED: PNEUMOCOCCAL VACCINE POLYVALENT 0.5 ML VIAL [PPSV23] IM ONE (05:15)
[2018-07-09] MEDS ORDERED: HYDROCORTISONE 1% 30 GM CREAM TP PRN (07:00)
[2018-07-09 07:06] LABS: BASOPHILS % (AUTO) 0.6 % (0.0-2.0); EOSINOPHILS % (AUTO) 4.8 % (1.0-6.0); HEMATOCRIT 40.7 % (41-53); HEMOGLOBIN 14.3 g/dL (13.5-17.5); LYMPHOCYTES # (AUTO) 2.4 K/uL (1.0-4.8); LYMPHOCYTES % (AUTO) 37.7 % (22.0-44.0); MEAN CORPUSCULAR HEMOGLOBIN 30.1 pg (26.0-34.0); MEAN CORPUSCULAR HGB CONC 35.1 G/dL (31.0-37.0); MEAN CORPUSCULAR VOLUME 86 fL (80-100); MONOCYTES # (AUTO) 0.6 K/uL (0.1-1.0); MONOCYTES % (AUTO) 9.5 % (2.0-9.0); NEUTROPHILS % (AUTO) 47.4 % (40.0-70.0); PLATELET COUNT (AUTO) 199 K/uL (150-450); RED BLOOD CELL COUNT(AUTO) 4.75 MIL/uL (4.50-5.90); RED CELL DISTRIBUTION WIDTH 13.9 % (11.5-14.5)
[2018-07-09 07:16] LABS: HEMOGLOBIN A1C 5.5 % (4.5-6.2)
[2018-07-09 07:43] LABS: ALANINE AMINOTRANSFERASE 21 U/L (12-78); ALBUMIN 3.2 g/dL (3.4-5.0); ALKALINE PHOSPHATASE 74 U/L (46-116); ANION GAP 7 mmol/L (8-16); ASPARTATE AMINOTRANSFERASE 24 U/L (15-37); BILIRUBIN,TOTAL 1.6 mg/dL (0.1-1.0); CALCIUM, TOTAL 8.8 mg/dL (8.8-10.5); CARBON DIOXIDE 30 mmol/L (22-29); CHLORIDE 107 mmol/L (98-107); CHOL/HDL RATIO 2.4 (4.2-7.3); CHOLESTEROL 92 mg/dL (131-200); CREATININE 0.93 mg/dL (0.60-1.30); GLOMERULAR FILTR. RATE CALC > 60 mL/min (>60); GLUCOSE,RANDOM 104 mg/dL (70-110); HDL CHOLESTEROL 39 mg/dL (40-60); LDL CHOL (CALC.) 42 mg/dL (0-130); SODIUM SERUM 144 mmol/L (136-145); TOTAL PROTEIN, SERUM 6.6 g/dL (6.4-8.2); TRIGLYCERIDES 57 mg/dL (15-150); UREA NITROGEN, BLOOD 13 mg/dL (7-18)
[2018-07-09 08:01] LABS: THYROID STIMULATING HORMONE 1.23 uIU/mL (0.36-3.74)
[2018-07-09] MEDS ORDERED: METOPROLOL TARTRATE 25 MG TABLET PO SCH (09:00)
[2018-07-09] MEDS ORDERED: PANTOPRAZOLE SODIUM 40 MG DR TABLET PO SCH (09:00)
[2018-07-09] MEDS ORDERED: ASPIRIN PO SCH (09:00)
[2018-07-09] MEDS ORDERED: MULTIVITAMINS WITH MINERALS, THERAPEUTIC TABLET PO SCH (09:00)
[2018-07-09] MEDS ORDERED: POTASSIUM CHLORIDE 20 MEQ ER TABLET PO ONE (11:30)
[2018-07-09] MEDS: METOPROLOL TARTRATE 25 MG TABLET PO SCH ×2 (13:28→17:00)
[2018-07-09] MEDS: ASPIRIN 81 MG EC TABLET PO SCH (13:28)
[2018-07-09] MEDS: MULTIVITAMINS WITH MINERALS, THERAPEUTIC TABLET PO SCH ×2 (13:29→17:00)
[2018-07-09] MEDS: PANTOPRAZOLE SODIUM 40 MG DR TABLET PO SCH (13:29)
[2018-07-09] MEDS: OLANZapine 10 MG TABLET PO SCH (13:32)
[2018-07-09] MEDS: OLANZapine 5 MG RAPDIS TABLET PO PRN (13:46)
[2018-07-09] MEDS: DIVALPROEX SODIUM 250 MG ER TABLET PO SCH (17:00)
[2018-07-10] MEDS ORDERED: MAGNESIUM HYDROXIDE SUSPENSION 30 ML UDCUP PO PRN
[2018-07-10] MEDS ORDERED: PETROLATUM,WHITE 71 GM JELLY TP PRN
[2018-07-10] MEDS ORDERED: MAG HYDROX/AL HYDROX/SIMETH ES 30 ML SUSPENSION UDCUP PO PRN
[2018-07-10] MEDS ORDERED: ONDANSETRON HCL 4 MG TABLET PO PRN
[2018-07-10] MEDS ORDERED: ALBUTEROL SULFATE HFA 90 MCG/PUFF 8 GM INHALER IH PRN
[2018-07-10] MEDS ORDERED: GuaiFENesin/D-METHORPHAN [SUGAR-FREE] 200-20MG/10 ML SYRUP UDCUP PO PRN
[2018-07-10] MEDS ORDERED: CloNIDine HCL 0.1 MG TABLET PO PRN
[2018-07-10] MEDS ORDERED: LOPERAMIDE HCL 2 MG CAPSULE PO PRN
[2018-07-10] MEDS ORDERED: DOCUSATE SODIUM 100 MG CAPSULE PO PRN
[2018-07-10] MEDS ORDERED: ACETAMINOPHEN 325 MG TABLET PO PRN
[2018-07-10] MEDS ORDERED: IBUPROFEN 400 MG TABLET PO PRN
[2018-07-10] MEDS: LORazepam 2 MG TABLET PO PRN ×3 (08:45→13:01)
[2018-07-10] MEDS: OLANZapine 10 MG TABLET PO SCH (08:45)
[2018-07-10] MEDS: OLANZapine 5 MG RAPDIS TABLET PO PRN ×3 (08:45→13:01)
[2018-07-10] MEDS: PANTOPRAZOLE SODIUM 40 MG DR TABLET PO SCH (08:45)
[2018-07-10] MEDS: METOPROLOL TARTRATE 25 MG TABLET PO SCH ×2 (08:45→16:35)
[2018-07-10] MEDS: MULTIVITAMINS WITH MINERALS, THERAPEUTIC TABLET PO SCH ×2 (08:45→16:35)
[2018-07-10] MEDS: DIVALPROEX SODIUM 250 MG ER TABLET PO SCH ×2 (08:46→16:35)
[2018-07-10] MEDS: ASPIRIN 81 MG EC TABLET PO SCH (08:46)
[2018-07-10] MEDS: OLANZapine 7.5 MG TABLET PO SCH ×2 (21:00→21:31)
[2018-07-11 08:30] VITALS: BP 163/108
[2018-07-11] MEDS: MULTIVITAMINS WITH MINERALS, THERAPEUTIC TABLET PO SCH ×2 (08:34→17:00)
[2018-07-11] MEDS: PANTOPRAZOLE SODIUM 40 MG DR TABLET PO SCH (08:34)
[2018-07-11] MEDS: ASPIRIN 81 MG EC TABLET PO SCH (08:34)
[2018-07-11] MEDS: METOPROLOL TARTRATE 25 MG TABLET PO SCH ×2 (08:34→17:00)
[2018-07-11] MEDS: DIVALPROEX SODIUM 250 MG ER TABLET PO SCH ×2 (08:42→17:00)
[2018-07-11] MEDS: OLANZapine 7.5 MG TABLET PO SCH (20:50)
[2018-07-12] MEDS: ASPIRIN 81 MG EC TABLET PO SCH (08:32)
[2018-07-12] MEDS: PANTOPRAZOLE SODIUM 40 MG DR TABLET PO SCH (08:33)
[2018-07-12] MEDS: DIVALPROEX SODIUM 250 MG ER TABLET PO SCH ×2 (08:33→16:24)
[2018-07-12] MEDS: METOPROLOL TARTRATE 25 MG TABLET PO SCH ×2 (08:34→16:24)
[2018-07-12] MEDS: MULTIVITAMINS WITH MINERALS, THERAPEUTIC TABLET PO SCH ×2 (08:34→16:24)
[2018-07-12 17:42] VITALS: BP 145/100
[2018-07-12] MEDS: OLANZapine 7.5 MG TABLET PO SCH (20:01)
[2018-07-13 09:00] VITALS: BP 161/109
[2018-07-13] MEDS: MULTIVITAMINS WITH MINERALS, THERAPEUTIC TABLET PO SCH ×2 (09:31→16:13)
[2018-07-13] MEDS: METOPROLOL TARTRATE 25 MG TABLET PO SCH ×2 (09:31→17:00)
[2018-07-13] MEDS: ASPIRIN 81 MG EC TABLET PO SCH (09:31)
[2018-07-13] MEDS: PANTOPRAZOLE SODIUM 40 MG DR TABLET PO SCH (09:31)
[2018-07-13] MEDS: DIVALPROEX SODIUM 250 MG ER TABLET PO SCH (09:31)
[2018-07-13] MEDS: DIVALPROEX SODIUM 500 MG ER TABLET PO SCH (16:14)
[2018-07-13] MEDS: OLANZapine 7.5 MG TABLET PO SCH (21:41)
[2018-07-14 00:05] VITALS: BP 153/88
[2018-07-14 08:05] VITALS: BP 109/64
[2018-07-14] MEDS: MULTIVITAMINS WITH MINERALS, THERAPEUTIC TABLET PO SCH ×2 (08:23→16:29)
[2018-07-14] MEDS: ASPIRIN 81 MG EC TABLET PO SCH (08:24)
[2018-07-14] MEDS: DIVALPROEX SODIUM 500 MG ER TABLET PO SCH ×2 (08:24→16:29)
[2018-07-14] MEDS: PANTOPRAZOLE SODIUM 40 MG DR TABLET PO SCH (08:24)
[2018-07-14] MEDS: METOPROLOL TARTRATE 25 MG TABLET PO SCH ×2 (09:00→16:29)
[2018-07-14 16:20] VITALS: BP 137/96
[2018-07-14] MEDS: OLANZapine 7.5 MG TABLET PO SCH (20:54)
[2018-07-15] MEDS: PANTOPRAZOLE SODIUM 40 MG DR TABLET PO SCH (07:57)
[2018-07-15] MEDS: DIVALPROEX SODIUM 500 MG ER TABLET PO SCH ×2 (07:57→16:58)
[2018-07-15] MEDS: MULTIVITAMINS WITH MINERALS, THERAPEUTIC TABLET PO SCH ×2 (07:58→16:58)
[2018-07-15] MEDS: ASPIRIN 81 MG EC TABLET PO SCH (07:58)
[2018-07-15] MEDS: METOPROLOL TARTRATE 25 MG TABLET PO SCH ×2 (07:58→16:59)
[2018-07-15 08:05] VITALS: BP 128/96
[2018-07-15 17:26] VITALS: BP 124/84
[2018-07-15] MEDS ORDERED: OLANZapine 10 MG TABLET PO SCH (21:00)
[2018-07-16] MEDS: PANTOPRAZOLE SODIUM 40 MG DR TABLET PO SCH (08:10)
[2018-07-16] MEDS: DIVALPROEX SODIUM 500 MG ER TABLET PO SCH ×2 (08:10→16:42)
[2018-07-16] MEDS: METOPROLOL TARTRATE 25 MG TABLET PO SCH ×2 (08:11→16:42)
[2018-07-16] MEDS: ASPIRIN 81 MG EC TABLET PO SCH (08:11)
[2018-07-16] MEDS: MULTIVITAMINS WITH MINERALS, THERAPEUTIC TABLET PO SCH ×2 (08:12→16:42)
[2018-07-16 08:15] VITALS: BP 144/54
[2018-07-16] MEDS ORDERED: DIVA500T52 PO (16:51)
[2018-07-16] MEDS ORDERED: NALT50TA6 PO (16:51)
[2018-07-16] MEDS ORDERED: OLAN10TA20 PO (16:51)
[2018-07-16 16:53] VITALS: BP 111/64
[2018-07-17] MEDS ORDERED: NALTREXONE HCL 50 MG TABLET PO SCH (09:00)
== END 2018-07-16 18:15 | disposition home or self-care (01) | DRG 885 ==
LOC: EMS 17:17 → 3EX 20:31
PROVIDERS: ADMIT Psychiatry & Neurology Psychiatry; ATTEND Psychiatry & Neurology Psychiatry
DX: F25.0 Schizoaffective disorder, bipolar type (principal); E43 Unspecified severe protein-calorie malnutrition; B18.2 Chronic viral hepatitis C; R45.851 Suicidal ideations; E87.6 Hypokalemia; F14.90 Cocaine use, unspecified, uncomplicated; I10 Essential (primary) hypertension; I48.2 Chronic atrial fibrillation; J44.9 Chronic obstructive pulmonary disease, unspecified; K21.9 Gastro-esophageal reflux disease without esophagitis; F17.210 Nicotine dependence, cigarettes, uncomplicated; Z91.14 Patient's other noncompliance with medication regimen; G89.29 Other chronic pain; E11.40 Type 2 diabetes mellitus with diabetic neuropathy, unspecified; F19.10 Other psychoactive substance abuse, uncomplicated; F12.90 Cannabis use, unspecified, uncomplicated; Z91.018 Allergy to other foods; Z88.8 Allergy status to other drugs, medicaments and biological substances; Z79.899 Other long term (current) drug therapy; Z68.30 Body mass index [BMI] 30.0-30.9, adult
CPT/HCPCS: 83036; 84132; 84443; 87081; 99285; G0480

== ENCOUNTER 2018-10-10 12:33 | Emergency (ER) | payer MEDICARE, OTHER ==
[~2018-10-10] VITALS: Ht 190.5 cm; Wt 109.1 kg
[~2018-10-10 12:33] MED LIST changes: -DIVA250T45 PO; +DIVA500T52 PO; +NALT50TA6 PO; +OLAN10TA20 PO; -OLAN10TA3 PO
[2018-10-10] MEDS ORDERED: IBUPROFEN 600 MG TABLET PO ONE (13:45)
[2018-10-10 15:42] VITALS: BP 140/89
== END 2018-10-10 16:25 | disposition home or self-care (01) ==
LOC: EMS 12:36
DX: S90.32XA Contusion of left foot, initial encounter (principal); F17.210 Nicotine dependence, cigarettes, uncomplicated; I10 Essential (primary) hypertension; F20.9 Schizophrenia, unspecified; J44.9 Chronic obstructive pulmonary disease, unspecified; Z79.82 Long term (current) use of aspirin; Z79.899 Other long term (current) drug therapy; Z91.018 Allergy to other foods; Z88.8 Allergy status to other drugs, medicaments and biological substances; V03.10XA Pedestrian on foot injured in collision with car, pick-up truck or van in traffic accident, initial encounter; Y93.89 Activity, other specified; Y92.89 Other specified places as the place of occurrence of the external cause; Y99.8 Other external cause status

== ENCOUNTER 2018-10-26 17:24 | Emergency (ER) | payer MEDICARE, OTHER ==
[~2018-10-26] VITALS: Ht 190.5 cm; Wt 109.0 kg
[2018-10-26] MEDS ORDERED: KETOROLAC TROMETHAMINE 60 MG/2 ML VIAL IM ONE (19:15)
[2018-10-26] MEDS ORDERED: ACETAMINOPHEN 500 MG TABLET PO ONE (19:15)
[2018-10-26] MEDS ORDERED: GuaiFENesin/D-METHORPHAN [SUGAR-FREE] 200-20MG/10 ML SYRUP UDCUP PO ONE (19:15)
[2018-10-26 19:30] LABS: BASOPHILS % (AUTO) 0.5 % (0.0-2.0); EOSINOPHILS % (AUTO) 0.1 % (1.0-6.0); HEMATOCRIT 46.6 % (41-53); HEMOGLOBIN 15.8 g/dL (13.5-17.5); LYMPHOCYTES # (AUTO) 0.8 K/uL (1.0-4.8); LYMPHOCYTES % (AUTO) 13.6 % (22.0-44.0); MEAN CORPUSCULAR HEMOGLOBIN 29.5 pg (26.0-34.0); MEAN CORPUSCULAR HGB CONC 33.9 G/dL (31.0-37.0); MEAN CORPUSCULAR VOLUME 87 fL (80-100); MONOCYTES % (AUTO) 16.9 % (2.0-9.0); NEUTROPHILS # (AUTO) 3.9 K/uL (1.8-7.7); NEUTROPHILS % (AUTO) 68.9 % (40.0-70.0); PLATELET COUNT (AUTO) 220 K/uL (150-450); RED BLOOD CELL COUNT(AUTO) 5.36 MIL/uL (4.50-5.90); RED CELL DISTRIBUTION WIDTH 13.7 % (11.5-14.5)
[2018-10-26 19:56] LABS: ANION GAP 8 mmol/L (8-16); CALCIUM, TOTAL 9.1 mg/dL (8.8-10.5); CARBON DIOXIDE 32 mmol/L (22-29); CHLORIDE 99 mmol/L (98-107); CREATININE 1.04 mg/dL (0.60-1.30); GLOMERULAR FILTR. RATE CALC > 60 mL/min (>60); GLUCOSE,RANDOM 111 mg/dL (70-110); POTASSIUM 3.3 mmol/L (3.5-5.1); SODIUM SERUM 139 mmol/L (136-145); UREA NITROGEN, BLOOD 14 mg/dL (7-18)
[2018-10-26 20:07] LABS: ALANINE AMINOTRANSFERASE 17 U/L (12-78); ALKALINE PHOSPHATASE 94 U/L (46-116); ASPARTATE AMINOTRANSFERASE 23 U/L (15-37); LIPASE 74 U/L (73-393); TOTAL PROTEIN, SERUM 8.5 g/dL (6.4-8.2)
[2018-10-26] MEDS ORDERED: POTASSIUM CHLORIDE 10% 40 MEQ/30 ML LIQUID UDCUP PO ONE (20:15)
[2018-10-26 20:30] VITALS: BP 134/75
[2018-10-26 20:30] LABS: INFLUENZA TYPE A NEGATIVE FOR TYPE A (NEGATIVE); INFLUENZA TYPE B NEGATIVE FOR TYPE B (NEGATIVE)
== END 2018-10-26 21:31 | disposition home or self-care (01) ==
LOC: EMS 17:25
DX: J40 Bronchitis, not specified as acute or chronic (principal); J06.9 Acute upper respiratory infection, unspecified; E87.6 Hypokalemia; R11.10 Vomiting, unspecified; R19.7 Diarrhea, unspecified; J44.9 Chronic obstructive pulmonary disease, unspecified; I10 Essential (primary) hypertension; F20.9 Schizophrenia, unspecified; F17.210 Nicotine dependence, cigarettes, uncomplicated; F14.90 Cocaine use, unspecified, uncomplicated; G89.29 Other chronic pain; Z88.8 Allergy status to other drugs, medicaments and biological substances; Z91.018 Allergy to other foods; Z79.82 Long term (current) use of aspirin
CPT/HCPCS: 36415; 71045; 80053; 83690; 84484; 85025; 87804; 93005; 96372; 99284; J1885

== ENCOUNTER 2020-01-24 08:09 | Emergency (ER) | payer MEDICARE, OTHER | END 2020-01-24 09:06 | disposition left against medical advice (07) | LOC: EMS 08:12 | DX: Z53.21 Procedure and treatment not carried out due to patient leaving prior to being seen by health care provider (principal) ==

== ENCOUNTER 2020-01-29 10:05 | Emergency (ER) | payer MEDICARE ==
[~2020-01-29] VITALS: Ht 190.5 cm; Wt 105.0 kg
[2020-01-29 10:10] VITALS: BP 151/85
== END 2020-01-29 10:40 | disposition left against medical advice (07) ==
LOC: EMS 10:08
DX: R44.0 Auditory hallucinations (principal); Z53.21 Procedure and treatment not carried out due to patient leaving prior to being seen by health care provider

== ENCOUNTER 2020-04-25 19:39 | Inpatient (IN) | payer MEDICARE, MEDICAID ==
[~2020-04-25] VITALS: Ht 190.5 cm; Wt 94.7 kg
[~2020-04-25 19:39] MED LIST changes: +DIVA-80 PO; -DIVA500T52 PO; +PANT-31 PO; -PANT40TA25 PO
[2020-04-25] MEDS ORDERED: FURO80 PO (20:23)
[2020-04-25] MEDS ORDERED: DIGO125T84 PO (20:23)
[2020-04-25] MEDS ORDERED: ACET-66 PO (20:23)
[2020-04-25] MEDS ORDERED: ATOR40TA28 PO (20:27)
[2020-04-25] MEDS ORDERED: RIVA20TA PO (20:27)
[2020-04-25] MEDS ORDERED: PRAZ1 PO (20:29)
[2020-04-25] MEDS ORDERED: IBUP-2070 PO (20:29)
[2020-04-25 20:54] LABS: EOSINOPHILS % (AUTO) 1.8 % (1.0-6.0); HEMATOCRIT 47.6 % (41-53); LYMPHOCYTES # (AUTO) 2.6 K/uL (1.0-4.8); LYMPHOCYTES % (AUTO) 34.5 % (22.0-44.0); MEAN CORPUSCULAR HEMOGLOBIN 29.7 pg (26.0-34.0); MEAN CORPUSCULAR HGB CONC 33.6 G/dL (31.0-37.0); MEAN CORPUSCULAR VOLUME 89 fL (80-100); MONOCYTES # (AUTO) 0.7 K/uL (0.1-1.0); MONOCYTES % (AUTO) 8.8 % (2.0-9.0); NEUTROPHILS # (AUTO) 4.1 K/uL (1.8-7.7); NEUTROPHILS % (AUTO) 53.9 % (40.0-70.0); PLATELET COUNT (AUTO) 210 K/uL (150-450); RED BLOOD CELL COUNT(AUTO) 5.38 MIL/uL (4.50-5.90); RED CELL DISTRIBUTION WIDTH 14.4 % (11.5-14.5)
[2020-04-25 20:58] LABS: ANION GAP 10 mmol/L (8-16); CALCIUM, TOTAL 8.8 mg/dL (8.8-10.5); CARBON DIOXIDE 27 mmol/L (22-29); CHLORIDE 104 mmol/L (98-107); GLOMERULAR FILTR. RATE CALC > 60 mL/min (>60); GLUCOSE,RANDOM 103 mg/dL (70-110); POTASSIUM 3.8 mmol/L (3.5-5.1); SODIUM SERUM 141 mmol/L (136-145); UREA NITROGEN, BLOOD 21 mg/dL (7-18)
[2020-04-25] MEDS ORDERED: ZOLPIDEM TARTRATE 10 MG TABLET PO PRN (21:00)
[2020-04-25 21:05] LABS: ALANINE AMINOTRANSFERASE 19 U/L (12-78); ALBUMIN 3.6 g/dL (3.4-5.0); ALKALINE PHOSPHATASE 80 U/L (46-116); ASPARTATE AMINOTRANSFERASE 14 U/L (15-37); BILIRUBIN,TOTAL 0.9 mg/dL (0.1-1.0)
[2020-04-25 22:04] LABS: VALPROIC ACID < 3 mcg/mL (50-100)
[2020-04-25 22:57] LABS: AMPHET/METH SCREEN,URINE POSITIVE (NEGATIVE); BARBITURATE SCREEN, URINE NEGATIVE (NEGATIVE); BENZODIAZEPINES SCREEN,URINE NEGATIVE (NEGATIVE); CANNABINOID SCREEN,URINE POSITIVE (NEGATIVE); COCAINE SCREEN,URINE POSITIVE (NEGATIVE); METHADONE SCREEN, URINE NEGATIVE (NEGATIVE); OPIATE SCREEN,URINE NEGATIVE (NEGATIVE)
[2020-04-25 22:58] LABS: PHENCYCLIDINE SCREEN,URINE NEGATIVE (NEGATIVE)
[2020-04-26] MEDS ORDERED: PNEUMOCOCCAL VACCINE POLYVALENT 0.5 ML VIAL [PPSV23] IM ONE (05:30)
[2020-04-26] MEDS ORDERED: PETROLATUM,WHITE 28 GM JELLY TP PRN (07:45)
[2020-04-26] MEDS ORDERED: ACETAMINOPHEN 325 MG TABLET PO PRN (07:45)
[2020-04-26] MEDS ORDERED: DOCUSATE SODIUM 100 MG CAPSULE PO PRN (07:45)
[2020-04-26] MEDS ORDERED: LOPERAMIDE HCL 2 MG CAPSULE PO PRN (07:45)
[2020-04-26] MEDS ORDERED: MAG HYDROX/AL HYDROX/SIMETH ES 30 ML SUSPENSION UDCUP PO PRN (07:45)
[2020-04-26] MEDS ORDERED: CloNIDine HCL 0.1 MG TABLET PO PRN (07:45)
[2020-04-26] MEDS ORDERED: MAGNESIUM HYDROXIDE SUSPENSION 30 ML UDCUP PO PRN (07:45)
[2020-04-26] MEDS ORDERED: GuaiFENesin/D-METHORPHAN [SUGAR-FREE] 200-20MG/10 ML SYRUP UDCUP PO PRN (07:45)
[2020-04-26] MEDS ORDERED: NICOTINE 14 MG/24 HOUR PATCH TD PRN (07:45)
[2020-04-26] MEDS ORDERED: ALBUTEROL SULFATE HFA 90 MCG/PUFF 8 GM INHALER IH PRN (07:45)
[2020-04-26] MEDS ORDERED: ONDANSETRON HCL 4 MG TABLET PO PRN (07:45)
[2020-04-26 08:00] LABS: CHOL/HDL RATIO 3.5 (4.2-7.3)
[2020-04-26 08:53] VITALS: BP 125/66
[2020-04-26] MEDS: PANTOPRAZOLE SODIUM 40 MG DR TABLET PO SCH (08:53)
[2020-04-26] MEDS: ASPIRIN 81 MG EC TABLET PO SCH (08:53)
[2020-04-26] MEDS: MULTIVITAMINS WITH MINERALS, THERAPEUTIC TABLET PO SCH ×2 (08:54→17:34)
[2020-04-26] MEDS: METOPROLOL TARTRATE 25 MG TABLET PO SCH ×2 (08:54→17:34)
[2020-04-26] MEDS: FUROSEMIDE 80 MG TABLET PO SCH (12:11)
[2020-04-26] MEDS: RIVAROXABAN 20 MG TABLET PO SCH (12:11)
[2020-04-26 16:22] VITALS: BP 126/75
[2020-04-26] MEDS: OLANZapine 10 MG TABLET PO SCH (17:34)
[2020-04-26] MEDS: LORazepam 2 MG TABLET PO PRN (17:34)
[2020-04-26] MEDS: DIGOXIN 125 MCG TABLET PO SCH (20:49)
[2020-04-26] MEDS: ATORVASTATIN CALCIUM 40 MG TABLET PO SCH (20:50)
[2020-04-27 06:26] VITALS: BP 119/78
[2020-04-27] MEDS: ASPIRIN 81 MG EC TABLET PO SCH (08:17)
[2020-04-27] MEDS: OLANZapine 10 MG TABLET PO SCH ×2 (08:17→17:12)
[2020-04-27] MEDS: PANTOPRAZOLE SODIUM 40 MG DR TABLET PO SCH (08:17)
[2020-04-27 08:18] VITALS: BP 139/89
[2020-04-27] MEDS: METOPROLOL TARTRATE 25 MG TABLET PO SCH ×2 (08:18→17:12)
[2020-04-27] MEDS: RIVAROXABAN 20 MG TABLET PO SCH (08:18)
[2020-04-27] MEDS: MULTIVITAMINS WITH MINERALS, THERAPEUTIC TABLET PO SCH ×2 (08:18→17:12)
[2020-04-27] MEDS: FUROSEMIDE 80 MG TABLET PO SCH (08:18)
[2020-04-27 16:07] VITALS: BP 116/69
[2020-04-27 17:12] VITALS: BP 121/77
[2020-04-27 20:29] VITALS: BP 117/68
[2020-04-27] MEDS: DIGOXIN 125 MCG TABLET PO SCH (20:30)
[2020-04-27] MEDS: ATORVASTATIN CALCIUM 40 MG TABLET PO SCH (20:30)
[2020-04-28 00:16] VITALS: BP 122/66
[2020-04-28] MEDS: MULTIVITAMINS WITH MINERALS, THERAPEUTIC TABLET PO SCH ×2 (08:06→16:37)
[2020-04-28] MEDS: PANTOPRAZOLE SODIUM 40 MG DR TABLET PO SCH (08:06)
[2020-04-28] MEDS: FUROSEMIDE 80 MG TABLET PO SCH (08:06)
[2020-04-28] MEDS: OLANZapine 10 MG TABLET PO SCH ×2 (08:07→16:37)
[2020-04-28] MEDS: METOPROLOL TARTRATE 25 MG TABLET PO SCH ×2 (08:07→16:37)
[2020-04-28] MEDS: ASPIRIN 81 MG EC TABLET PO SCH (08:08)
[2020-04-28 08:14] VITALS: BP 137/77
[2020-04-28 16:34] VITALS: BP 124/71
[2020-04-28] MEDS: RIVAROXABAN 20 MG TABLET PO SCH (16:38)
[2020-04-28 20:36] VITALS: BP 124/69
[2020-04-28] MEDS: DIGOXIN 125 MCG TABLET PO SCH (20:36)
[2020-04-28] MEDS: ATORVASTATIN CALCIUM 40 MG TABLET PO SCH (20:36)
[2020-04-29 01:33] VITALS: BP 116/73
[2020-04-29] MEDS: PANTOPRAZOLE SODIUM 40 MG DR TABLET PO SCH (08:27)
[2020-04-29] MEDS: METOPROLOL TARTRATE 25 MG TABLET PO SCH ×2 (08:27→17:00)
[2020-04-29] MEDS: ASPIRIN 81 MG EC TABLET PO SCH (08:27)
[2020-04-29] MEDS: OLANZapine 10 MG TABLET PO SCH ×2 (08:27→16:40)
[2020-04-29] MEDS: FUROSEMIDE 80 MG TABLET PO SCH (08:27)
[2020-04-29] MEDS: MULTIVITAMINS WITH MINERALS, THERAPEUTIC TABLET PO SCH ×2 (08:27→16:40)
[2020-04-29 08:34] VITALS: BP 110/82
[2020-04-29 16:00] VITALS: BP 109/61
[2020-04-29] MEDS: RIVAROXABAN 20 MG TABLET PO SCH (16:40)
[2020-04-29 20:15] VITALS: BP 110/67
[2020-04-29] MEDS: DIGOXIN 125 MCG TABLET PO SCH (20:16)
[2020-04-29] MEDS: ATORVASTATIN CALCIUM 40 MG TABLET PO SCH (20:16)
[2020-04-30 08:48] VITALS: BP 120/76
[2020-04-30] MEDS: MULTIVITAMINS WITH MINERALS, THERAPEUTIC TABLET PO SCH ×2 (08:49→16:37)
[2020-04-30] MEDS: OLANZapine 10 MG TABLET PO SCH ×2 (08:49→16:37)
[2020-04-30] MEDS: FUROSEMIDE 80 MG TABLET PO SCH (08:49)
[2020-04-30] MEDS: ASPIRIN 81 MG EC TABLET PO SCH (08:49)
[2020-04-30] MEDS: METOPROLOL TARTRATE 25 MG TABLET PO SCH ×2 (08:49→16:37)
[2020-04-30] MEDS: PANTOPRAZOLE SODIUM 40 MG DR TABLET PO SCH (08:49)
[2020-04-30 16:36] VITALS: BP 123/81
[2020-04-30] MEDS: RIVAROXABAN 20 MG TABLET PO SCH (16:38)
[2020-04-30 20:33] VITALS: BP 117/67
[2020-04-30] MEDS: DIGOXIN 125 MCG TABLET PO SCH (20:33)
[2020-04-30] MEDS: ATORVASTATIN CALCIUM 40 MG TABLET PO SCH (20:33)
[2020-05-01 02:13] VITALS: BP 140/76
[2020-05-01 08:16] VITALS: BP 132/68
[2020-05-01] MEDS: ASPIRIN 81 MG EC TABLET PO SCH (08:55)
[2020-05-01] MEDS: METOPROLOL TARTRATE 25 MG TABLET PO SCH ×2 (08:55→17:03)
[2020-05-01] MEDS: OLANZapine 10 MG TABLET PO SCH ×2 (08:55→17:03)
[2020-05-01] MEDS: MULTIVITAMINS WITH MINERALS, THERAPEUTIC TABLET PO SCH ×2 (08:55→17:03)
[2020-05-01] MEDS: FUROSEMIDE 80 MG TABLET PO SCH (08:55)
[2020-05-01] MEDS: PANTOPRAZOLE SODIUM 40 MG DR TABLET PO SCH (08:55)
[2020-05-01 16:21] VITALS: BP 131/85
[2020-05-01] MEDS: LORazepam 2 MG TABLET PO PRN (17:02)
[2020-05-01] MEDS: RIVAROXABAN 20 MG TABLET PO SCH (17:03)
[2020-05-01] MEDS: ATORVASTATIN CALCIUM 40 MG TABLET PO SCH (21:04)
[2020-05-01] MEDS: DIGOXIN 125 MCG TABLET PO SCH (21:04)
[2020-05-02 00:14] VITALS: BP 124/72
[2020-05-02 07:42] LABS: ANION GAP 3 mmol/L (8-16); CALCIUM, TOTAL 8.8 mg/dL (8.8-10.5); CARBON DIOXIDE 35 mmol/L (22-29); CHLORIDE 105 mmol/L (98-107); GLOMERULAR FILTR. RATE CALC > 60 mL/min (>60); GLUCOSE,RANDOM 111 mg/dL (70-110); POTASSIUM 4.4 mmol/L (3.5-5.1); SODIUM SERUM 143 mmol/L (136-145); UREA NITROGEN, BLOOD 24 mg/dL (7-18)
[2020-05-02 08:15] VITALS: BP 132/78
[2020-05-02] MEDS: MULTIVITAMINS WITH MINERALS, THERAPEUTIC TABLET PO SCH ×2 (08:44→16:48)
[2020-05-02] MEDS: OLANZapine 10 MG TABLET PO SCH ×2 (08:44→16:48)
[2020-05-02] MEDS: ASPIRIN 81 MG EC TABLET PO SCH (08:44)
[2020-05-02] MEDS: METOPROLOL TARTRATE 25 MG TABLET PO SCH ×2 (08:44→16:48)
[2020-05-02] MEDS: PANTOPRAZOLE SODIUM 40 MG DR TABLET PO SCH (08:44)
[2020-05-02] MEDS: FUROSEMIDE 80 MG TABLET PO SCH (08:44)
[2020-05-02] MEDS ORDERED: GABAPENTIN 300 MG CAPSULE PO ONE (12:15)
[2020-05-02 16:26] VITALS: BP 136/90
[2020-05-02] MEDS: RIVAROXABAN 20 MG TABLET PO SCH (16:48)
[2020-05-02] MEDS: GABAPENTIN 300 MG CAPSULE PO SCH (16:51)
[2020-05-02] MEDS: LORazepam 2 MG TABLET PO PRN (16:51)
[2020-05-02] MEDS: DIGOXIN 125 MCG TABLET PO SCH (20:36)
[2020-05-02] MEDS: ATORVASTATIN CALCIUM 40 MG TABLET PO SCH (20:36)
[2020-05-03 00:08] VITALS: BP 128/76
[2020-05-03] MEDS: PANTOPRAZOLE SODIUM 40 MG DR TABLET PO SCH (08:21)
[2020-05-03] MEDS: OLANZapine 10 MG TABLET PO SCH ×2 (08:21→16:36)
[2020-05-03] MEDS: METOPROLOL TARTRATE 25 MG TABLET PO SCH ×2 (08:21→16:37)
[2020-05-03] MEDS: FUROSEMIDE 80 MG TABLET PO SCH (08:21)
[2020-05-03] MEDS: GABAPENTIN 300 MG CAPSULE PO SCH ×2 (08:21→16:36)
[2020-05-03] MEDS: MULTIVITAMINS WITH MINERALS, THERAPEUTIC TABLET PO SCH ×2 (08:21→16:36)
[2020-05-03] MEDS: ASPIRIN 81 MG EC TABLET PO SCH (08:22)
[2020-05-03 16:13] VITALS: BP 131/75
[2020-05-03] MEDS: RIVAROXABAN 20 MG TABLET PO SCH (16:37)
[2020-05-03] MEDS: LORazepam 2 MG TABLET PO PRN (17:46)
[2020-05-03 20:26] VITALS: BP 120/66
[2020-05-03] MEDS: DIGOXIN 125 MCG TABLET PO SCH (20:27)
[2020-05-03] MEDS: ATORVASTATIN CALCIUM 40 MG TABLET PO SCH (20:27)
[2020-05-04 05:20] VITALS: BP 131/78
[2020-05-04] MEDS ORDERED: GABA-1181 PO (07:47)
[2020-05-04] MEDS ORDERED: OLAN10TA3 PO (07:47)
[2020-05-04 08:00] VITALS: BP 130/77
[2020-05-04 08:10] VITALS: BP 130/77
[2020-05-04] MEDS: ASPIRIN 81 MG EC TABLET PO SCH (08:16)
[2020-05-04] MEDS: MULTIVITAMINS WITH MINERALS, THERAPEUTIC TABLET PO SCH (08:16)
[2020-05-04] MEDS: OLANZapine 10 MG TABLET PO SCH (08:16)
[2020-05-04] MEDS: FUROSEMIDE 80 MG TABLET PO SCH (08:17)
[2020-05-04] MEDS: PANTOPRAZOLE SODIUM 40 MG DR TABLET PO SCH (08:17)
[2020-05-04] MEDS: GABAPENTIN 300 MG CAPSULE PO SCH (08:17)
[2020-05-04] MEDS: METOPROLOL TARTRATE 25 MG TABLET PO SCH (08:19)
== END 2020-05-04 13:06 | disposition home or self-care (01) | DRG 885 ==
LOC: EMS 19:39 → B2X 21:00
PROVIDERS: ADMIT Psychiatry & Neurology Psychiatry; ATTEND Psychiatry & Neurology Psychiatry
DX: F25.1 Schizoaffective disorder, depressive type (principal); I11.0 Hypertensive heart disease with heart failure; I48.20 Chronic atrial fibrillation, unspecified; R45.851 Suicidal ideations; E78.5 Hyperlipidemia, unspecified; K75.9 Inflammatory liver disease, unspecified; G62.9 Polyneuropathy, unspecified; Z88.8 Allergy status to other drugs, medicaments and biological substances; F17.210 Nicotine dependence, cigarettes, uncomplicated; F14.90 Cocaine use, unspecified, uncomplicated; J44.9 Chronic obstructive pulmonary disease, unspecified; I50.9 Heart failure, unspecified
CPT/HCPCS: G0480

== ENCOUNTER 2020-05-12 21:33 | Inpatient (IN) | payer MEDICARE, MEDICAID ==
[~2020-05-12] VITALS: Ht 190.5 cm; Wt 102.7 kg
[~2020-05-12 21:33] MED LIST changes: +ATOR40TA28 PO; +DIGO125T84 PO; -DIVA-80 PO; +FURO80 PO; +GABA-1181 PO; -MULT-1239 PO; -NALT50TA6 PO; -OLAN10TA20 PO; +OLAN10TA3 PO; -PANT-31 PO; +RIVA20TA PO
[2020-05-12 22:34] LABS: BASOPHILS % (AUTO) 0.6 % (0.0-2.0); HEMATOCRIT 39.7 % (41-53); HEMOGLOBIN 12.8 g/dL (13.5-17.5); LYMPHOCYTES % (AUTO) 40.7 % (22.0-44.0); MEAN CORPUSCULAR HEMOGLOBIN 28.9 pg (26.0-34.0); MEAN CORPUSCULAR HGB CONC 32.2 G/dL (31.0-37.0); MEAN CORPUSCULAR VOLUME 90 fL (80-100); MONOCYTES # (AUTO) 0.6 K/uL (0.1-1.0); MONOCYTES % (AUTO) 8.3 % (2.0-9.0); NEUTROPHILS # (AUTO) 3.4 K/uL (1.8-7.7); NEUTROPHILS % (AUTO) 46.4 % (40.0-70.0); PLATELET COUNT (AUTO) 213 K/uL (150-450); RED BLOOD CELL COUNT(AUTO) 4.41 MIL/uL (4.50-5.90); RED CELL DISTRIBUTION WIDTH 14.2 % (11.5-14.5)
[2020-05-12 22:56] LABS: AMPHET/METH SCREEN,URINE NEGATIVE (NEGATIVE); BARBITURATE SCREEN, URINE NEGATIVE (NEGATIVE); BENZODIAZEPINES SCREEN,URINE NEGATIVE (NEGATIVE); CANNABINOID SCREEN,URINE NEGATIVE (NEGATIVE); COCAINE SCREEN,URINE NEGATIVE (NEGATIVE); METHADONE SCREEN, URINE NEGATIVE (NEGATIVE); OPIATE SCREEN,URINE NEGATIVE (NEGATIVE)
[2020-05-12 22:57] LABS: PHENCYCLIDINE SCREEN,URINE NEGATIVE (NEGATIVE)
[2020-05-12 23:24] LABS: ANION GAP 6 mmol/L (8-16); CALCIUM, TOTAL 8.2 mg/dL (8.8-10.5); CARBON DIOXIDE 29 mmol/L (22-29); CHLORIDE 109 mmol/L (98-107); CREATININE 0.88 mg/dL (0.60-1.30); GLOMERULAR FILTR. RATE CALC > 60 mL/min (>60); GLUCOSE,RANDOM 125 mg/dL (70-110); SODIUM SERUM 144 mmol/L (136-145); UREA NITROGEN, BLOOD 16 mg/dL (7-18)
[2020-05-12 23:30] LABS: ALANINE AMINOTRANSFERASE 20 U/L (12-78); ALBUMIN 2.9 g/dL (3.4-5.0); ALKALINE PHOSPHATASE 85 U/L (46-116); ASPARTATE AMINOTRANSFERASE 20 U/L (15-37); BILIRUBIN,TOTAL 0.3 mg/dL (0.1-1.0); TOTAL PROTEIN, SERUM 6.2 g/dL (6.4-8.2)
[2020-05-13] MEDS ORDERED: ZOLPIDEM TARTRATE 10 MG TABLET PO PRN (00:45)
[2020-05-13] MEDS ORDERED: POTASSIUM CHLORIDE 20 MEQ ER TABLET PO ONE (00:45)
[2020-05-13] MEDS ORDERED: LORazepam 2 MG TABLET PO PRN (00:45)
[2020-05-13] MEDS ORDERED: OLANZapine 5 MG RAPDIS TABLET PO PRN (00:45)
[2020-05-13 04:41] VITALS: BP 152/98
[2020-05-13] MEDS ORDERED: PNEUMOCOCCAL VACCINE POLYVALENT 0.5 ML VIAL [PPSV23] IM ONE (05:00)
[2020-05-13 16:53] VITALS: BP 118/67
[2020-05-14 09:16] VITALS: BP 101/60
[2020-05-14] MEDS: GABAPENTIN 300 MG CAPSULE PO SCH ×2 (09:18→16:22)
[2020-05-14 17:28] VITALS: BP 131/90
[2020-05-14] MEDS ORDERED: OLANZapine 10 MG TABLET PO SCH (21:00)
[2020-05-15 05:15] VITALS: BP 130/86
[2020-05-15] MEDS ORDERED: RIVAROXABAN 20 MG TABLET PO SCH (08:00)
[2020-05-15 08:10] LABS: CHOL/HDL RATIO 2.9 (4.2-7.3); POTASSIUM 3.8 mmol/L (3.5-5.1)
[2020-05-15 08:20] VITALS: BP 121/80
[2020-05-15] MEDS: GABAPENTIN 300 MG CAPSULE PO SCH ×2 (08:45→16:29)
[2020-05-15] MEDS ORDERED: DIGOXIN 125 MCG TABLET PO SCH (09:00)
[2020-05-15] MEDS ORDERED: MAGNESIUM HYDROXIDE SUSPENSION 30 ML UDCUP PO PRN (14:30)
[2020-05-15] MEDS ORDERED: GuaiFENesin/D-METHORPHAN [SUGAR-FREE] 200-20MG/10 ML SYRUP UDCUP PO PRN (14:30)
[2020-05-15] MEDS ORDERED: PROMETHAZINE HCL 25 MG TABLET PO PRN (14:30)
[2020-05-15] MEDS ORDERED: LOPERAMIDE HCL 2 MG CAPSULE PO PRN (14:30)
[2020-05-15] MEDS ORDERED: ACETAMINOPHEN 325 MG TABLET PO PRN (14:30)
[2020-05-15] MEDS ORDERED: HydrOXYzine PAMOATE 50 MG CAPSULE PO PRN (14:30)
[2020-05-15] MEDS ORDERED: MAG HYDROX/AL HYDROX/SIMETH ES 30 ML SUSPENSION UDCUP PO PRN (14:30)
[2020-05-15] MEDS ORDERED: TUBERCULIN, PURIFIED PROTEIN DERIVATIVE 5 TU/0.1 ML SYRINGE ID ONE (14:30)
[2020-05-15 16:13] VITALS: BP 136/62
[2020-05-15] MEDS ORDERED: GABA-1181 PO (16:59)
[2020-05-15] MEDS ORDERED: OLAN10TA20 PO (16:59)
[2020-05-15] MEDS ORDERED: DIVA-80 PO (16:59)
[2020-05-15] MEDS ORDERED: NALT50TA PO (16:59)
[2020-05-15] MEDS ORDERED: THIAMINE 100 MG TABLET PO SCH (17:00)
[2020-05-15] MEDS: OLANZapine 10 MG TABLET PO SCH ×2 (20:25→21:00)
[2020-05-15] MEDS: DIVALPROEX SODIUM 500 MG ER TABLET PO SCH ×2 (20:25→21:00)
[2020-05-16 00:56] VITALS: BP 133/70
[2020-05-16] MEDS ORDERED: THIA100T80 PO (03:45)
[2020-05-16] MEDS ORDERED: FOLI-130 PO (03:45)
[2020-05-16] MEDS ORDERED: MULT-1203 PO (03:45)
[2020-05-16] MEDS ORDERED: DIGO125T84 PO (03:45)
[2020-05-16] MEDS ORDERED: RIVA20TA PO (03:45)
[2020-05-16] MEDS ORDERED: DIVA-80 PO (03:57)
[2020-05-16] MEDS ORDERED: GABA-1181 PO (03:57)
[2020-05-16] MEDS ORDERED: OLAN10TA3 PO (03:57)
[2020-05-16] MEDS ORDERED: NALT50TA6 PO (03:57)
[2020-05-16] MEDS ORDERED: NALTREXONE HCL 50 MG TABLET PO SCH (09:00)
[2020-05-16] MEDS ORDERED: FOLIC ACID 1 MG TABLET PO SCH (09:00)
[2020-05-16] MEDS ORDERED: MULTIVITAMINS WITH MINERALS, THERAPEUTIC TABLET PO SCH (09:00)
== END 2020-05-16 07:30 | disposition home or self-care (01) | DRG 885 ==
LOC: EMS 21:33 → B2X 05-13 00:39 → UNDOADMIN 05-13 00:39 → UNDODISIN 05-16 07:30
PROVIDERS: ADMIT Psychiatry & Neurology Psychiatry; ATTEND Psychiatry & Neurology Psychiatry
DX: F25.0 Schizoaffective disorder, bipolar type (principal); I11.0 Hypertensive heart disease with heart failure; B19.20 Unspecified viral hepatitis C without hepatic coma; E46 Unspecified protein-calorie malnutrition; R45.851 Suicidal ideations; D64.9 Anemia, unspecified; I50.9 Heart failure, unspecified; I48.91 Unspecified atrial fibrillation; Z79.01 Long term (current) use of anticoagulants; Z68.28 Body mass index [BMI] 28.0-28.9, adult; B18.2 Chronic viral hepatitis C; E78.5 Hyperlipidemia, unspecified; E87.6 Hypokalemia; J44.9 Chronic obstructive pulmonary disease, unspecified; M19.90 Unspecified osteoarthritis, unspecified site; F39 Unspecified mood [affective] disorder; F17.210 Nicotine dependence, cigarettes, uncomplicated; F14.90 Cocaine use, unspecified, uncomplicated; M81.0 Age-related osteoporosis without current pathological fracture; Z59.0 Homelessness; Z91.14 Patient's other noncompliance with medication regimen
CPT/HCPCS: 84132; G0480

== ENCOUNTER 2020-05-16 20:34 | Emergency (ER) | payer MEDICAID, MEDICARE ==
[~2020-05-16] VITALS: Ht 190.5 cm; Wt 100.0 kg
[~2020-05-16 20:34] MED LIST changes: +DIVA-80 PO; +FOLI-130 PO; +MULT-1203 PO; +NALT50TA PO; +NALT50TA6 PO; +OLAN10TA20 PO; +THIA100T80 PO
[2020-05-16 21:26] LABS: BASOPHILS % (AUTO) 1.1 % (0.0-2.0); HEMATOCRIT 45.1 % (41-53); HEMOGLOBIN 15.4 g/dL (13.5-17.5); LYMPHOCYTES # (AUTO) 2.5 K/uL (1.0-4.8); LYMPHOCYTES % (AUTO) 31.5 % (22.0-44.0); MEAN CORPUSCULAR HEMOGLOBIN 30.4 pg (26.0-34.0); MEAN CORPUSCULAR HGB CONC 34.1 G/dL (31.0-37.0); MEAN CORPUSCULAR VOLUME 89 fL (80-100); MONOCYTES # (AUTO) 0.9 K/uL (0.1-1.0); MONOCYTES % (AUTO) 10.7 % (2.0-9.0); NEUTROPHILS # (AUTO) 4.4 K/uL (1.8-7.7); NEUTROPHILS % (AUTO) 54.7 % (40.0-70.0); PLATELET COUNT (AUTO) 241 K/uL (150-450); RED BLOOD CELL COUNT(AUTO) 5.06 MIL/uL (4.50-5.90); RED CELL DISTRIBUTION WIDTH 14.3 % (11.5-14.5)
[2020-05-16 21:38] LABS: ANION GAP 4 mmol/L (8-16); CALCIUM, TOTAL 9.1 mg/dL (8.8-10.5); CARBON DIOXIDE 30 mmol/L (22-29); CHLORIDE 107 mmol/L (98-107); GLOMERULAR FILTR. RATE CALC > 60 mL/min (>60); GLUCOSE,RANDOM 118 mg/dL (70-110); POTASSIUM 4.3 mmol/L (3.5-5.1); SODIUM SERUM 141 mmol/L (136-145); UREA NITROGEN, BLOOD 23 mg/dL (7-18)
[2020-05-16 21:45] LABS: ALANINE AMINOTRANSFERASE 20 U/L (12-78); ALBUMIN 3.4 g/dL (3.4-5.0); ALKALINE PHOSPHATASE 88 U/L (46-116); ASPARTATE AMINOTRANSFERASE 16 U/L (15-37); BILIRUBIN,TOTAL 0.6 mg/dL (0.1-1.0); TOTAL PROTEIN, SERUM 7.5 g/dL (6.4-8.2)
[2020-05-16 21:57] LABS: AMPHET/METH SCREEN,URINE NEGATIVE (NEGATIVE); BARBITURATE SCREEN, URINE NEGATIVE (NEGATIVE); BENZODIAZEPINES SCREEN,URINE NEGATIVE (NEGATIVE); CANNABINOID SCREEN,URINE POSITIVE (NEGATIVE); COCAINE SCREEN,URINE NEGATIVE (NEGATIVE); METHADONE SCREEN, URINE NEGATIVE (NEGATIVE); OPIATE SCREEN,URINE NEGATIVE (NEGATIVE)
[2020-05-16 22:07] LABS: VALPROIC ACID < 3 mcg/mL (50-100)
[2020-05-16 22:08] LABS: PHENCYCLIDINE SCREEN,URINE NEGATIVE (NEGATIVE)
[2020-05-16] MEDS ORDERED: OLANZapine 5 MG TABLET PO ONE (23:00)
[2020-05-16] MEDS ORDERED: DIVALPROEX SODIUM 500 MG ER TABLET PO ONE (23:00)
[2020-05-17 08:09] VITALS: BP 155/83
== END 2020-05-17 09:49 | disposition home or self-care (01) ==
LOC: EMS 20:34
DX: F69 Unspecified disorder of adult personality and behavior (principal); F25.9 Schizoaffective disorder, unspecified; F17.210 Nicotine dependence, cigarettes, uncomplicated; F14.90 Cocaine use, unspecified, uncomplicated; F12.90 Cannabis use, unspecified, uncomplicated; J44.9 Chronic obstructive pulmonary disease, unspecified; I10 Essential (primary) hypertension; Z91.018 Allergy to other foods; Z88.8 Allergy status to other drugs, medicaments and biological substances; Z79.899 Other long term (current) drug therapy
CPT/HCPCS: 36415; 80053; 80164; 80307; 85025; 99284; G0480

== ENCOUNTER 2020-07-30 05:06 | Emergency (ER) | payer MEDICARE ==
[~2020-07-30] VITALS: Ht 190.5 cm; Wt 100.0 kg
[~2020-07-30 05:06] MED LIST changes: -ASPI-556 PO; -ATOR40TA28 PO; -FOLI-130 PO; -FURO80 PO; -METO25 PO; -MULT-1203 PO; -NALT50TA PO; -OLAN10TA20 PO; -THIA100T80 PO
[2020-07-30 06:14] LABS: ANION GAP 3 mmol/L (8-16); BASOPHILS % (AUTO) 1.3 % (0.0-2.0); CALCIUM, TOTAL 8.6 mg/dL (8.8-10.5); CARBON DIOXIDE 33 mmol/L (22-29); CHLORIDE 107 mmol/L (98-107); CREATININE 0.91 mg/dL (0.60-1.30); EOSINOPHILS % (AUTO) 2.9 % (1.0-6.0); GLOMERULAR FILTR. RATE CALC > 60 mL/min (>60); GLUCOSE,RANDOM 102 mg/dL (70-110); HEMATOCRIT 40.8 % (41-53); HEMOGLOBIN 13.9 g/dL (13.5-17.5); LYMPHOCYTES # (AUTO) 2.7 K/uL (1.0-4.8); MEAN CORPUSCULAR HEMOGLOBIN 30.2 pg (26.0-34.0); MEAN CORPUSCULAR VOLUME 89 fL (80-100); MONOCYTES # (AUTO) 0.5 K/uL (0.1-1.0); NEUTROPHILS # (AUTO) 3.2 K/uL (1.8-7.7); NEUTROPHILS % (AUTO) 47.8 % (40.0-70.0); POTASSIUM 3.3 mmol/L (3.5-5.1); RED BLOOD CELL COUNT(AUTO) 4.59 MIL/uL (4.50-5.90); RED CELL DISTRIBUTION WIDTH 13.9 % (11.5-14.5); SODIUM SERUM 143 mmol/L (136-145); UREA NITROGEN, BLOOD 9 mg/dL (7-18)
[2020-07-30 06:21] LABS: ALANINE AMINOTRANSFERASE 17 U/L (12-78); ALBUMIN 2.8 g/dL (3.4-5.0); ALKALINE PHOSPHATASE 67 U/L (46-116); ASPARTATE AMINOTRANSFERASE 15 U/L (15-37); BILIRUBIN,TOTAL 0.4 mg/dL (0.1-1.0); CREATINE KINASE, TOTAL ONLY 21 U/L (39-308); TOTAL PROTEIN, SERUM 7.3 g/dL (6.4-8.2)
[2020-07-30 06:41] LABS: B-TYPE NATRIURETIC PEPTIDE 15 pg/mL (0-100)
[2020-07-30] MEDS ORDERED: POTASSIUM CHLORIDE 20 MEQ ER TABLET PO ONE (07:00)
[2020-07-30] MEDS ORDERED: FUROSEMIDE 20 MG TABLET PO ONE (07:00)
[2020-07-30 07:15] VITALS: BP 172/97
[2020-07-30 07:30] LABS: PLATELET COUNT (AUTO) 247 K/uL (150-450)
== END 2020-07-30 07:33 | disposition home or self-care (01) ==
LOC: EMS 05:06
DX: I11.0 Hypertensive heart disease with heart failure (principal); I50.9 Heart failure, unspecified; I48.91 Unspecified atrial fibrillation; F20.9 Schizophrenia, unspecified; F17.210 Nicotine dependence, cigarettes, uncomplicated; F12.90 Cannabis use, unspecified, uncomplicated; F14.90 Cocaine use, unspecified, uncomplicated; Z88.8 Allergy status to other drugs, medicaments and biological substances; Z91.018 Allergy to other foods
CPT/HCPCS: 83735; 93005; 36415-L1; 36415-TC; 71045-TC

== ENCOUNTER 2020-08-05 00:32 | Inpatient (IN) | payer MEDICARE ==
[~2020-08-05] VITALS: Ht 190.5 cm; Wt 89.5 kg
[2020-08-05 02:00] LABS: BASOPHILS % (AUTO) 0.8 % (0.0-2.0); EOSINOPHILS % (AUTO) 3.1 % (1.0-6.0); HEMATOCRIT 46.3 % (41-53); HEMOGLOBIN 15.4 g/dL (13.5-17.5); LYMPHOCYTES # (AUTO) 3.5 K/uL (1.0-4.8); LYMPHOCYTES % (AUTO) 40.3 % (22.0-44.0); MEAN CORPUSCULAR HEMOGLOBIN 29.5 pg (26.0-34.0); MEAN CORPUSCULAR HGB CONC 33.4 G/dL (31.0-37.0); MEAN CORPUSCULAR VOLUME 88 fL (80-100); MONOCYTES # (AUTO) 0.8 K/uL (0.1-1.0); MONOCYTES % (AUTO) 9.8 % (2.0-9.0); NEUTROPHILS # (AUTO) 3.9 K/uL (1.8-7.7); PLATELET COUNT (AUTO) 269 K/uL (150-450); RED BLOOD CELL COUNT(AUTO) 5.23 MIL/uL (4.50-5.90); RED CELL DISTRIBUTION WIDTH 13.9 % (11.5-14.5)
[2020-08-05 02:15] LABS: ANION GAP 10 mmol/L (8-16); CALCIUM, TOTAL 8.8 mg/dL (8.8-10.5); CARBON DIOXIDE 27 mmol/L (22-29); CHLORIDE 101 mmol/L (98-107); CREATININE 1.07 mg/dL (0.60-1.30); GLOMERULAR FILTR. RATE CALC > 60 mL/min (>60); GLUCOSE,RANDOM 96 mg/dL (70-110); POTASSIUM 3.4 mmol/L (3.5-5.1); SODIUM SERUM 138 mmol/L (136-145); UREA NITROGEN, BLOOD 18 mg/dL (7-18)
[2020-08-05 02:21] LABS: ALANINE AMINOTRANSFERASE 13 U/L (12-78); ALBUMIN 3.4 g/dL (3.4-5.0); ALKALINE PHOSPHATASE 83 U/L (46-116); ASPARTATE AMINOTRANSFERASE 15 U/L (15-37); BILIRUBIN,TOTAL 0.9 mg/dL (0.1-1.0); TOTAL PROTEIN, SERUM 7.5 g/dL (6.4-8.2)
[2020-08-05 02:23] LABS: VALPROIC ACID < 3 mcg/mL (50-100)
[2020-08-05] MEDS ORDERED: OLANZapine 5 MG RAPDIS TABLET PO PRN (04:00)
[2020-08-05] MEDS ORDERED: ZOLPIDEM TARTRATE 10 MG TABLET PO PRN (04:00)
[2020-08-05 04:33] LABS: COVID AG,FIA SOURCE NASOPHARYNGEAL
[2020-08-05 04:42] LABS: DIGOXIN < 0.20 ng/mL (0.90-2.00)
[2020-08-05 05:19] LABS: AMPHET/METH SCREEN,URINE NEGATIVE (NEGATIVE); BARBITURATE SCREEN, URINE NEGATIVE (NEGATIVE); BENZODIAZEPINES SCREEN,URINE NEGATIVE (NEGATIVE); CANNABINOID SCREEN,URINE NEGATIVE (NEGATIVE); COCAINE SCREEN,URINE NEGATIVE (NEGATIVE); METHADONE SCREEN, URINE NEGATIVE (NEGATIVE); OPIATE SCREEN,URINE NEGATIVE (NEGATIVE); PHENCYCLIDINE SCREEN,URINE NEGATIVE (NEGATIVE)
[2020-08-05 08:42] LABS: APPEARANCE,URINE CLEAR (CLEAR); BILIRUBIN,URINE NEGATIVE (NEGATIVE); GLUCOSE, URINE (UA) NEGATIVE (NEGATIVE); KETONES,URINE NEGATIVE (NEGATIVE); LEUKOCYTE ESTERASE ,URINE NEGATIVE (NEGATIVE); NITRATE,URINE NEGATIVE (NEGATIVE); OCCULT BLOOD,URINE NEGATIVE (NEGATIVE); PROTEIN,URINE NEGATIVE (NEGATIVE)
[2020-08-05] MEDS ORDERED: ALBUTEROL SULFATE HFA 90 MCG/PUFF 8 GM INHALER IH PRN (08:45)
[2020-08-05] MEDS ORDERED: CloNIDine HCL 0.1 MG TABLET PO PRN (08:45)
[2020-08-05] MEDS ORDERED: NICOTINE 14 MG/24 HOUR PATCH TD PRN (08:45)
[2020-08-05] MEDS ORDERED: IBUPROFEN 400 MG TABLET PO PRN (08:45)
[2020-08-05] MEDS ORDERED: DOCUSATE SODIUM 100 MG CAPSULE PO PRN (08:45)
[2020-08-05] MEDS ORDERED: PETROLATUM,WHITE 28 GM JELLY TP PRN (08:45)
[2020-08-05] MEDS ORDERED: ONDANSETRON HCL 4 MG TABLET PO PRN (08:45)
[2020-08-05] MEDS ORDERED: MAG HYDROX/AL HYDROX/SIMETH ES 30 ML SUSPENSION UDCUP PO PRN (08:45)
[2020-08-05] MEDS ORDERED: ACETAMINOPHEN 325 MG TABLET PO PRN (08:45)
[2020-08-05] MEDS ORDERED: LOPERAMIDE HCL 2 MG CAPSULE PO PRN (08:45)
[2020-08-05] MEDS ORDERED: GuaiFENesin/D-METHORPHAN [SUGAR-FREE] 200-20MG/10 ML SYRUP UDCUP PO PRN (08:45)
[2020-08-05] MEDS ORDERED: MAGNESIUM HYDROXIDE SUSPENSION 30 ML UDCUP PO PRN (08:45)
[2020-08-05] MEDS: DIGOXIN 125 MCG TABLET PO SCH (09:49)
[2020-08-05] MEDS: RIVAROXABAN 20 MG TABLET PO SCH (09:49)
[2020-08-05] MEDS ORDERED: POTASSIUM CHLORIDE 20 MEQ ER TABLET PO ONE (14:30)
[2020-08-05] MEDS ORDERED: CEPHALEXIN MONOHYDRATE 500 MG CAPSULE PO SCH (14:45)
[2020-08-05] MEDS: CEPHALEXIN MONOHYDRATE 500 MG CAPSULE PO SCH (16:46)
[2020-08-05] MEDS: LORazepam 2 MG TABLET PO PRN (16:46)
[2020-08-06] MEDS: CEPHALEXIN MONOHYDRATE 500 MG CAPSULE PO SCH ×3 (08:34→16:54)
[2020-08-06] MEDS: DIGOXIN 125 MCG TABLET PO SCH (08:34)
[2020-08-06] MEDS: LORazepam 2 MG TABLET PO PRN ×3 (08:34→16:54)
[2020-08-06] MEDS: RIVAROXABAN 20 MG TABLET PO SCH (08:34)
[2020-08-06] MEDS: NALTREXONE HCL 50 MG TABLET PO SCH (11:03)
[2020-08-06] MEDS: OLANZapine 10 MG TABLET PO SCH (20:09)
[2020-08-06] MEDS: DIVALPROEX SODIUM 500 MG ER TABLET PO SCH (20:09)
[2020-08-07 08:03] LABS: CHOL/HDL RATIO 3.8 (4.2-7.3)
[2020-08-07] MEDS: NALTREXONE HCL 50 MG TABLET PO SCH (08:39)
[2020-08-07] MEDS: CEPHALEXIN MONOHYDRATE 500 MG CAPSULE PO SCH ×3 (08:39→16:54)
[2020-08-07] MEDS: DIGOXIN 125 MCG TABLET PO SCH (08:39)
[2020-08-07] MEDS: RIVAROXABAN 20 MG TABLET PO SCH (08:39)
[2020-08-07] MEDS ORDERED: HydrOXYzine PAMOATE 50 MG CAPSULE PO PRN (10:15)
[2020-08-07] MEDS ORDERED: GuaiFENesin/D-METHORPHAN [SUGAR-FREE] 200-20MG/10 ML SYRUP UDCUP PO PRN (10:15)
[2020-08-07 13:43] VITALS: BP 135/72
[2020-08-07] MEDS: THIAMINE 100 MG TABLET PO SCH (16:54)
[2020-08-07 18:56] VITALS: BP 131/61
[2020-08-07] MEDS: OLANZapine 10 MG TABLET PO SCH (20:47)
[2020-08-07] MEDS: DIVALPROEX SODIUM 500 MG ER TABLET PO SCH (20:48)
[2020-08-08 00:45] VITALS: BP 131/71
[2020-08-08 08:09] VITALS: BP 143/83
[2020-08-08] MEDS: FOLIC ACID 1 MG TABLET PO SCH (08:49)
[2020-08-08] MEDS: RIVAROXABAN 20 MG TABLET PO SCH (08:49)
[2020-08-08] MEDS: MULTIVITAMINS WITH MINERALS, THERAPEUTIC TABLET PO SCH (08:49)
[2020-08-08] MEDS: NALTREXONE HCL 50 MG TABLET PO SCH (08:50)
[2020-08-08] MEDS: CEPHALEXIN MONOHYDRATE 500 MG CAPSULE PO SCH ×3 (08:50→16:35)
[2020-08-08] MEDS: DIGOXIN 125 MCG TABLET PO SCH (08:50)
[2020-08-08] MEDS: THIAMINE 100 MG TABLET PO SCH ×2 (08:50→16:36)
[2020-08-08 20:09] VITALS: BP 138/83
[2020-08-08] MEDS: DIVALPROEX SODIUM 500 MG ER TABLET PO SCH (20:40)
[2020-08-08] MEDS: OLANZapine 10 MG TABLET PO SCH (20:40)
[2020-08-09] MEDS: DIGOXIN 125 MCG TABLET PO SCH (08:12)
[2020-08-09] MEDS: MULTIVITAMINS WITH MINERALS, THERAPEUTIC TABLET PO SCH (08:12)
[2020-08-09] MEDS: RIVAROXABAN 20 MG TABLET PO SCH (08:12)
[2020-08-09] MEDS: NALTREXONE HCL 50 MG TABLET PO SCH (08:12)
[2020-08-09] MEDS: CEPHALEXIN MONOHYDRATE 500 MG CAPSULE PO SCH ×3 (08:12→16:33)
[2020-08-09] MEDS: THIAMINE 100 MG TABLET PO SCH ×2 (08:13→16:33)
[2020-08-09] MEDS: FOLIC ACID 1 MG TABLET PO SCH (08:14)
[2020-08-09 08:22] VITALS: BP 149/82
[2020-08-09 16:15] VITALS: BP 123/71
[2020-08-09] MEDS: OLANZapine 10 MG TABLET PO SCH (20:32)
[2020-08-09] MEDS: DIVALPROEX SODIUM 500 MG ER TABLET PO SCH (20:33)
[2020-08-10] MEDS: THIAMINE 100 MG TABLET PO SCH ×2 (08:17→16:37)
[2020-08-10] MEDS: NALTREXONE HCL 50 MG TABLET PO SCH (08:17)
[2020-08-10] MEDS: CEPHALEXIN MONOHYDRATE 500 MG CAPSULE PO SCH ×3 (08:17→16:37)
[2020-08-10] MEDS: MULTIVITAMINS WITH MINERALS, THERAPEUTIC TABLET PO SCH (08:17)
[2020-08-10] MEDS: FOLIC ACID 1 MG TABLET PO SCH (08:17)
[2020-08-10] MEDS: DIGOXIN 125 MCG TABLET PO SCH (08:17)
[2020-08-10 08:18] VITALS: BP 146/64
[2020-08-10 16:05] VITALS: BP 143/84
[2020-08-10] MEDS: RIVAROXABAN 20 MG TABLET PO SCH (17:25)
[2020-08-10] MEDS: OLANZapine 10 MG TABLET PO SCH (20:34)
[2020-08-10] MEDS: DIVALPROEX SODIUM 500 MG ER TABLET PO SCH (20:34)
[2020-08-11 04:25] VITALS: BP 129/84
[2020-08-11] MEDS: CEPHALEXIN MONOHYDRATE 500 MG CAPSULE PO SCH ×3 (08:53→17:15)
[2020-08-11] MEDS: MULTIVITAMINS WITH MINERALS, THERAPEUTIC TABLET PO SCH (08:53)
[2020-08-11] MEDS: FOLIC ACID 1 MG TABLET PO SCH (08:53)
[2020-08-11] MEDS: NALTREXONE HCL 50 MG TABLET PO SCH (08:53)
[2020-08-11] MEDS: DIGOXIN 125 MCG TABLET PO SCH (08:53)
[2020-08-11] MEDS: THIAMINE 100 MG TABLET PO SCH ×2 (08:53→17:15)
[2020-08-11 09:02] VITALS: BP 132/83
[2020-08-11 16:58] VITALS: BP 117/67
[2020-08-11] MEDS: RIVAROXABAN 20 MG TABLET PO SCH (17:15)
[2020-08-11] MEDS: DIVALPROEX SODIUM 500 MG ER TABLET PO SCH (20:32)
[2020-08-11] MEDS: OLANZapine 10 MG TABLET PO SCH (20:33)
[2020-08-12 02:25] VITALS: BP 124/82
[2020-08-12 08:18] VITALS: BP 112/61
[2020-08-12] MEDS: DIGOXIN 125 MCG TABLET PO SCH (10:40)
[2020-08-12] MEDS: MULTIVITAMINS WITH MINERALS, THERAPEUTIC TABLET PO SCH (10:40)
[2020-08-12] MEDS: NALTREXONE HCL 50 MG TABLET PO SCH (10:41)
[2020-08-12] MEDS: FOLIC ACID 1 MG TABLET PO SCH (10:41)
[2020-08-12] MEDS: CEPHALEXIN MONOHYDRATE 500 MG CAPSULE PO SCH ×3 (10:41→16:55)
[2020-08-12] MEDS: THIAMINE 100 MG TABLET PO SCH ×2 (10:42→16:55)
[2020-08-12] MEDS: RIVAROXABAN 20 MG TABLET PO SCH (16:55)
[2020-08-12 18:58] VITALS: BP 148/86
[2020-08-12] MEDS: DIVALPROEX SODIUM 500 MG ER TABLET PO SCH (20:35)
[2020-08-12] MEDS: OLANZapine 10 MG TABLET PO SCH (20:36)
[2020-08-13 00:46] VITALS: BP 122/65
[2020-08-13 09:18] VITALS: BP 137/72
[2020-08-13] MEDS: MULTIVITAMINS WITH MINERALS, THERAPEUTIC TABLET PO SCH (09:45)
[2020-08-13] MEDS: FOLIC ACID 1 MG TABLET PO SCH (09:45)
[2020-08-13] MEDS: CEPHALEXIN MONOHYDRATE 500 MG CAPSULE PO SCH ×3 (09:45→17:04)
[2020-08-13] MEDS: THIAMINE 100 MG TABLET PO SCH ×2 (09:45→17:04)
[2020-08-13] MEDS: DIGOXIN 125 MCG TABLET PO SCH (09:45)
[2020-08-13] MEDS: NALTREXONE HCL 50 MG TABLET PO SCH (09:46)
[2020-08-13] MEDS: RIVAROXABAN 20 MG TABLET PO SCH (17:04)
[2020-08-13 17:28] VITALS: BP 136/76
[2020-08-13] MEDS: DIVALPROEX SODIUM 500 MG ER TABLET PO SCH (20:36)
[2020-08-13] MEDS: OLANZapine 10 MG TABLET PO SCH (20:36)
[2020-08-14 00:11] VITALS: BP 132/72
[2020-08-14] MEDS: FOLIC ACID 1 MG TABLET PO SCH (09:25)
[2020-08-14] MEDS: NALTREXONE HCL 50 MG TABLET PO SCH (09:26)
[2020-08-14] MEDS: CEPHALEXIN MONOHYDRATE 500 MG CAPSULE PO SCH ×3 (09:26→17:29)
[2020-08-14] MEDS: DIGOXIN 125 MCG TABLET PO SCH (09:26)
[2020-08-14] MEDS: MULTIVITAMINS WITH MINERALS, THERAPEUTIC TABLET PO SCH (09:26)
[2020-08-14] MEDS: THIAMINE 100 MG TABLET PO SCH ×2 (09:26→17:30)
[2020-08-14 10:32] VITALS: BP 145/83
[2020-08-14 16:06] VITALS: BP 132/74
[2020-08-14] MEDS: RIVAROXABAN 20 MG TABLET PO SCH (17:29)
[2020-08-14] MEDS: DIVALPROEX SODIUM 500 MG ER TABLET PO SCH (20:34)
[2020-08-14] MEDS: OLANZapine 10 MG TABLET PO SCH (20:34)
[2020-08-15 00:17] VITALS: BP 133/75
[2020-08-15] MEDS: NALTREXONE HCL 50 MG TABLET PO SCH (09:00)
[2020-08-15] MEDS: CEPHALEXIN MONOHYDRATE 500 MG CAPSULE PO SCH ×2 (09:44→13:41)
[2020-08-15] MEDS: FOLIC ACID 1 MG TABLET PO SCH (09:44)
[2020-08-15] MEDS: THIAMINE 100 MG TABLET PO SCH ×2 (09:44→17:03)
[2020-08-15] MEDS: MULTIVITAMINS WITH MINERALS, THERAPEUTIC TABLET PO SCH (09:44)
[2020-08-15] MEDS: DIGOXIN 125 MCG TABLET PO SCH (09:45)
[2020-08-15 12:29] VITALS: BP 111/79
[2020-08-15 16:30] VITALS: BP 117/72
[2020-08-15] MEDS: RIVAROXABAN 20 MG TABLET PO SCH (17:03)
[2020-08-15] MEDS: DIVALPROEX SODIUM 500 MG ER TABLET PO SCH (20:37)
[2020-08-15] MEDS: OLANZapine 10 MG TABLET PO SCH (20:37)
[2020-08-16 00:25] VITALS: BP 139/79
[2020-08-16 08:59] VITALS: BP 139/82
[2020-08-16] MEDS: MULTIVITAMINS WITH MINERALS, THERAPEUTIC TABLET PO SCH (10:42)
[2020-08-16] MEDS: NALTREXONE HCL 50 MG TABLET PO SCH (10:42)
[2020-08-16] MEDS: DIGOXIN 125 MCG TABLET PO SCH (10:42)
[2020-08-16] MEDS: FOLIC ACID 1 MG TABLET PO SCH (10:42)
[2020-08-16] MEDS: THIAMINE 100 MG TABLET PO SCH ×2 (10:42→18:00)
[2020-08-16 16:18] VITALS: BP 100/60
[2020-08-16] MEDS: RIVAROXABAN 20 MG TABLET PO SCH (18:00)
[2020-08-16] MEDS: LORazepam 2 MG TABLET PO PRN (19:08)
[2020-08-16] MEDS: OLANZapine 10 MG TABLET PO SCH (21:32)
[2020-08-16] MEDS: DIVALPROEX SODIUM 500 MG ER TABLET PO SCH (21:32)
[2020-08-17 08:23] VITALS: BP 129/84
[2020-08-17] MEDS: MULTIVITAMINS WITH MINERALS, THERAPEUTIC TABLET PO SCH (08:59)
[2020-08-17] MEDS: THIAMINE 100 MG TABLET PO SCH (08:59)
[2020-08-17] MEDS: DIGOXIN 125 MCG TABLET PO SCH (08:59)
[2020-08-17] MEDS: NALTREXONE HCL 50 MG TABLET PO SCH (08:59)
[2020-08-17] MEDS: FOLIC ACID 1 MG TABLET PO SCH (08:59)
[2020-08-17] MEDS ORDERED: DIVA-80 PO (16:29)
[2020-08-17] MEDS ORDERED: OMEG-135 PO (16:29)
[2020-08-17] MEDS ORDERED: OLAN10TA20 PO (16:29)
[2020-08-17] MEDS ORDERED: NALT50TA PO (16:29)
[2020-08-17] MEDS: RIVAROXABAN 20 MG TABLET PO SCH (16:47)
[2020-08-17 17:13] VITALS: BP 140/92
[2020-08-17] MEDS: DIVALPROEX SODIUM 500 MG ER TABLET PO SCH (20:47)
[2020-08-17] MEDS: OLANZapine 10 MG TABLET PO SCH (20:53)
[2020-08-18] MEDS ORDERED: RIVA20TA PO (08:13)
[2020-08-18] MEDS ORDERED: DIGO125T84 PO (08:13)
[2020-08-18 08:49] VITALS: BP 134/70
[2020-08-18] MEDS ORDERED: OMEGA-3/DHA/EPA/FISH OIL 1,000 MG CAPSULE PO SCH (09:00)
[2020-08-18] MEDS: MULTIVITAMINS WITH MINERALS, THERAPEUTIC TABLET PO SCH (09:07)
[2020-08-18] MEDS: DIGOXIN 125 MCG TABLET PO SCH (09:07)
[2020-08-18] MEDS: NALTREXONE HCL 50 MG TABLET PO SCH (09:07)
== END 2020-08-18 10:10 | disposition home or self-care (01) | DRG 885 ==
LOC: EMS 00:35 → B3A 12:34 → B2X 08-07 16:25
PROVIDERS: ADMIT Psychiatry & Neurology Psychiatry; ATTEND Psychiatry & Neurology Psychiatry
DX: F25.9 Schizoaffective disorder, unspecified (principal); B18.2 Chronic viral hepatitis C; L03.116 Cellulitis of left lower limb; L03.115 Cellulitis of right lower limb; I48.20 Chronic atrial fibrillation, unspecified; R45.851 Suicidal ideations; I10 Essential (primary) hypertension; J44.9 Chronic obstructive pulmonary disease, unspecified; I48.91 Unspecified atrial fibrillation; M54.9 Dorsalgia, unspecified; E87.6 Hypokalemia; G89.29 Other chronic pain; Z20.828 Contact with and (suspected) exposure to other viral communicable diseases; G62.9 Polyneuropathy, unspecified; Z55.9 Problems related to education and literacy, unspecified; Z59.0 Homelessness; Z65.3 Problems related to other legal circumstances; Z91.5 Personal history of self-harm; Z88.8 Allergy status to other drugs, medicaments and biological substances; Z91.018 Allergy to other foods; Z79.899 Other long term (current) drug therapy
CPT/HCPCS: 84132; 87426; G0480

== ENCOUNTER 2020-08-25 17:17 | Inpatient (IN) | payer MEDICARE, MEDICAID ==
[~2020-08-25] VITALS: Ht 190.5 cm; Wt 97.0 kg
[~2020-08-25 17:17] MED LIST changes: -GABA-1181 PO; +NALT50TA PO; -NALT50TA6 PO; +OLAN10TA20 PO; -OLAN10TA3 PO; +OMEG-135 PO
[2020-08-25 19:38] LABS: BASOPHILS % (AUTO) 0.4 % (0.0-2.0); EOSINOPHILS % (AUTO) 3.9 % (1.0-6.0); HEMATOCRIT 43.2 % (41-53); LYMPHOCYTES # (AUTO) 2.8 K/uL (1.0-4.8); LYMPHOCYTES % (AUTO) 33.7 % (22.0-44.0); MEAN CORPUSCULAR HEMOGLOBIN 29.1 pg (26.0-34.0); MEAN CORPUSCULAR HGB CONC 32.4 G/dL (31.0-37.0); MEAN CORPUSCULAR VOLUME 90 fL (80-100); MONOCYTES # (AUTO) 0.7 K/uL (0.1-1.0); MONOCYTES % (AUTO) 8.6 % (2.0-9.0); NEUTROPHILS # (AUTO) 4.4 K/uL (1.8-7.7); NEUTROPHILS % (AUTO) 53.4 % (40.0-70.0); PLATELET COUNT (AUTO) 210 K/uL (150-450); RED BLOOD CELL COUNT(AUTO) 4.81 MIL/uL (4.50-5.90); RED CELL DISTRIBUTION WIDTH 14.6 % (11.5-14.5)
[2020-08-25 19:48] LABS: ANION GAP 10 mmol/L (8-16); CALCIUM, TOTAL 8.5 mg/dL (8.8-10.5); CARBON DIOXIDE 30 mmol/L (22-29); CHLORIDE 106 mmol/L (98-107); CREATININE 0.65 mg/dL (0.60-1.30); GLOMERULAR FILTR. RATE CALC > 60 mL/min (>60); GLUCOSE,RANDOM 74 mg/dL (70-110); POTASSIUM 3.1 mmol/L (3.5-5.1); SODIUM SERUM 146 mmol/L (136-145); UREA NITROGEN, BLOOD 16 mg/dL (7-18)
[2020-08-25 19:53] LABS: ALANINE AMINOTRANSFERASE 24 U/L (12-78); ALBUMIN 3.3 g/dL (3.4-5.0); ALKALINE PHOSPHATASE 74 U/L (46-116); ASPARTATE AMINOTRANSFERASE 23 U/L (15-37); BILIRUBIN,TOTAL 0.4 mg/dL (0.1-1.0); TOTAL PROTEIN, SERUM 6.8 g/dL (6.4-8.2)
[2020-08-25 20:16] LABS: VALPROIC ACID < 3 mcg/mL (50-100)
[2020-08-25] MEDS ORDERED: POTASSIUM CHLORIDE 20 MEQ ER TABLET PO ONE (21:00)
[2020-08-25 22:01] LABS: DIGOXIN < 0.20 ng/mL (0.90-2.00)
[2020-08-25 22:01] LABS: COVID AG,FIA SOURCE NASOPHARYNGEAL
[2020-08-25] MEDS ORDERED: ZOLPIDEM TARTRATE 10 MG TABLET PO PRN (23:00)
[2020-08-25] MEDS ORDERED: QUEtiapine FUMARATE 100 MG TABLET PO PRN (23:00)
[2020-08-26 01:03] VITALS: BP 149/70
[2020-08-26] MEDS ORDERED: PNEUMOCOCCAL VACCINE POLYVALENT 0.5 ML VIAL [PPSV23] IM ONE (04:45)
[2020-08-26] MEDS ORDERED: INFLUENZA VIRUS VACCINE QVS 2020-21 (6MO+)/PF 60 MCG/0.5 ML SYRINGE IM ONE (04:45)
[2020-08-26 08:44] VITALS: BP 142/89
[2020-08-26] MEDS ORDERED: POTASSIUM CHLORIDE 20 MEQ ER TABLET PO ONE (09:45)
[2020-08-26] MEDS: RIVAROXABAN 20 MG TABLET PO SCH (16:53)
[2020-08-26] MEDS: LISINOPRIL 20 MG TABLET PO SCH (16:53)
[2020-08-26 16:56] VITALS: BP 127/74
[2020-08-26] MEDS: OLANZapine 10 MG TABLET PO SCH (20:25)
[2020-08-26] MEDS: DIVALPROEX SODIUM 500 MG ER TABLET PO SCH (20:25)
[2020-08-27 06:29] VITALS: BP 130/76
[2020-08-27] MEDS: DIGOXIN 125 MCG TABLET PO SCH (08:20)
[2020-08-27] MEDS: LISINOPRIL 20 MG TABLET PO SCH ×2 (08:20→17:51)
[2020-08-27 08:35] VITALS: BP 146/95
[2020-08-27 16:26] VITALS: BP 110/62
[2020-08-27] MEDS: RIVAROXABAN 20 MG TABLET PO SCH (17:51)
[2020-08-27] MEDS: OLANZapine 10 MG TABLET PO SCH (21:00)
[2020-08-27] MEDS: DIVALPROEX SODIUM 500 MG ER TABLET PO SCH (21:00)
[2020-08-28 07:24] VITALS: BP 141/85
[2020-08-28 08:30] VITALS: BP 107/61
[2020-08-28] MEDS: LISINOPRIL 20 MG TABLET PO SCH ×2 (08:55→17:30)
[2020-08-28] MEDS: DIGOXIN 125 MCG TABLET PO SCH (08:55)
[2020-08-28] MEDS ORDERED: LOPERAMIDE HCL 2 MG CAPSULE PO PRN (12:30)
[2020-08-28] MEDS ORDERED: GuaiFENesin/D-METHORPHAN [SUGAR-FREE] 200-20MG/10 ML SYRUP UDCUP PO PRN (12:30)
[2020-08-28] MEDS ORDERED: PROMETHAZINE HCL 25 MG TABLET PO PRN (12:30)
[2020-08-28] MEDS ORDERED: MAGNESIUM HYDROXIDE SUSPENSION 30 ML UDCUP PO PRN (12:30)
[2020-08-28] MEDS ORDERED: HydrOXYzine PAMOATE 50 MG CAPSULE PO PRN (12:30)
[2020-08-28] MEDS ORDERED: MAG HYDROX/AL HYDROX/SIMETH ES 30 ML SUSPENSION UDCUP PO PRN (12:30)
[2020-08-28] MEDS ORDERED: ACETAMINOPHEN 325 MG TABLET PO PRN (12:30)
[2020-08-28 16:43] VITALS: BP 115/83
[2020-08-28] MEDS: RIVAROXABAN 20 MG TABLET PO SCH (17:30)
[2020-08-28] MEDS: THIAMINE 100 MG TABLET PO SCH (17:30)
[2020-08-28] MEDS: LORazepam 2 MG TABLET PO PRN (17:58)
[2020-08-28] MEDS: DIVALPROEX SODIUM 500 MG ER TABLET PO SCH (20:37)
[2020-08-28] MEDS: OLANZapine 10 MG TABLET PO SCH (20:38)
[2020-08-29 08:09] VITALS: BP 111/61
[2020-08-29] MEDS: DIGOXIN 125 MCG TABLET PO SCH (09:27)
[2020-08-29] MEDS: FOLIC ACID 1 MG TABLET PO SCH (09:27)
[2020-08-29] MEDS: OMEGA-3/DHA/EPA/FISH OIL 1,000 MG CAPSULE PO SCH (09:27)
[2020-08-29] MEDS: LISINOPRIL 20 MG TABLET PO SCH ×2 (09:28→17:21)
[2020-08-29] MEDS: NALTREXONE HCL 50 MG TABLET PO SCH (09:28)
[2020-08-29] MEDS: THIAMINE 100 MG TABLET PO SCH ×2 (09:28→17:21)
[2020-08-29] MEDS: MULTIVITAMINS WITH MINERALS, THERAPEUTIC TABLET PO SCH (09:28)
[2020-08-29 16:22] VITALS: BP 134/89
[2020-08-29] MEDS: RIVAROXABAN 20 MG TABLET PO SCH (17:21)
[2020-08-29] MEDS: DIVALPROEX SODIUM 500 MG ER TABLET PO SCH (21:00)
[2020-08-29] MEDS: OLANZapine 10 MG TABLET PO SCH (21:00)
[2020-08-30 00:12] VITALS: BP 128/81
[2020-08-30 08:47] VITALS: BP 130/81
[2020-08-30] MEDS: FOLIC ACID 1 MG TABLET PO SCH (09:12)
[2020-08-30] MEDS: DIGOXIN 125 MCG TABLET PO SCH (09:12)
[2020-08-30] MEDS: OMEGA-3/DHA/EPA/FISH OIL 1,000 MG CAPSULE PO SCH (09:12)
[2020-08-30] MEDS: MULTIVITAMINS WITH MINERALS, THERAPEUTIC TABLET PO SCH (09:13)
[2020-08-30] MEDS: THIAMINE 100 MG TABLET PO SCH ×2 (09:13→16:37)
[2020-08-30] MEDS: LISINOPRIL 20 MG TABLET PO SCH ×2 (09:14→16:36)
[2020-08-30] MEDS: NALTREXONE HCL 50 MG TABLET PO SCH (09:15)
[2020-08-30 16:32] VITALS: BP 110/75
[2020-08-30] MEDS: RIVAROXABAN 20 MG TABLET PO SCH (16:36)
[2020-08-30] MEDS: LORazepam 2 MG TABLET PO PRN (18:55)
[2020-08-30] MEDS: DIVALPROEX SODIUM 500 MG ER TABLET PO SCH (20:44)
[2020-08-30] MEDS: OLANZapine 10 MG TABLET PO SCH (20:44)
[2020-08-31 04:43] VITALS: BP 106/70
[2020-08-31 08:15] LABS: CHOL/HDL RATIO 3.8 (4.2-7.3); POTASSIUM 4.2 mmol/L (3.5-5.1)
[2020-08-31] MEDS: NALTREXONE HCL 50 MG TABLET PO SCH (08:41)
[2020-08-31] MEDS: LISINOPRIL 20 MG TABLET PO SCH ×2 (08:41→16:47)
[2020-08-31] MEDS: FOLIC ACID 1 MG TABLET PO SCH (08:41)
[2020-08-31] MEDS: MULTIVITAMINS WITH MINERALS, THERAPEUTIC TABLET PO SCH (08:41)
[2020-08-31] MEDS: OMEGA-3/DHA/EPA/FISH OIL 1,000 MG CAPSULE PO SCH (08:41)
[2020-08-31] MEDS: THIAMINE 100 MG TABLET PO SCH ×2 (08:42→16:47)
[2020-08-31] MEDS: DIGOXIN 125 MCG TABLET PO SCH (08:43)
[2020-08-31 08:57] VITALS: BP 103/64
[2020-08-31] MEDS: RIVAROXABAN 20 MG TABLET PO SCH (16:47)
[2020-08-31 18:18] VITALS: BP 109/76
[2020-08-31] MEDS: OLANZapine 10 MG TABLET PO SCH (20:23)
[2020-08-31] MEDS ORDERED: DIVALPROEX SODIUM 500 MG ER TABLET PO SCH (21:00)
[2020-09-01 08:14] VITALS: BP 119/68
[2020-09-01] MEDS: OMEGA-3/DHA/EPA/FISH OIL 1,000 MG CAPSULE PO SCH (08:41)
[2020-09-01] MEDS: MULTIVITAMINS WITH MINERALS, THERAPEUTIC TABLET PO SCH (08:41)
[2020-09-01] MEDS: DIGOXIN 125 MCG TABLET PO SCH (08:42)
[2020-09-01] MEDS: THIAMINE 100 MG TABLET PO SCH (08:42)
[2020-09-01] MEDS: LISINOPRIL 20 MG TABLET PO SCH (08:42)
[2020-09-01] MEDS: FOLIC ACID 1 MG TABLET PO SCH (08:42)
[2020-09-01] MEDS: NALTREXONE HCL 50 MG TABLET PO SCH (08:42)
[2020-09-01] MEDS ORDERED: NALT50TA PO (10:19)
[2020-09-01] MEDS ORDERED: OMEG-135 PO (10:19)
[2020-09-01] MEDS ORDERED: OLAN10TA20 PO (10:19)
[2020-09-01] MEDS ORDERED: DIVA-80 PO (10:19)
== END 2020-09-01 13:20 | disposition home or self-care (01) | DRG 885 ==
LOC: EMS 17:17 → B2X 22:30
PROVIDERS: ADMIT Psychiatry & Neurology Psychiatry; ATTEND Psychiatry & Neurology Psychiatry
DX: F25.9 Schizoaffective disorder, unspecified (principal); I11.0 Hypertensive heart disease with heart failure; B19.20 Unspecified viral hepatitis C without hepatic coma; R45.851 Suicidal ideations; F31.9 Bipolar disorder, unspecified; M17.12 Unilateral primary osteoarthritis, left knee; E87.6 Hypokalemia; F14.90 Cocaine use, unspecified, uncomplicated; F25.1 Schizoaffective disorder, depressive type; I48.91 Unspecified atrial fibrillation; I50.9 Heart failure, unspecified; J44.9 Chronic obstructive pulmonary disease, unspecified; G62.9 Polyneuropathy, unspecified; G89.29 Other chronic pain; F17.210 Nicotine dependence, cigarettes, uncomplicated; Z55.9 Problems related to education and literacy, unspecified; Z59.0 Homelessness; Z65.3 Problems related to other legal circumstances; Z79.01 Long term (current) use of anticoagulants; Z91.14 Patient's other noncompliance with medication regimen; Z28.21 Immunization not carried out because of patient refusal; Z79.899 Other long term (current) drug therapy; Z88.8 Allergy status to other drugs, medicaments and biological substances; Z91.018 Allergy to other foods; Z03.818 Encounter for observation for suspected exposure to other biological agents ruled out
CPT/HCPCS: 84132; 87081; 87426; G0480

== ENCOUNTER 2020-09-10 23:03 | Emergency (ER) | payer MEDICARE, OTHER ==
[~2020-09-10] VITALS: Ht 190.5 cm; Wt 102.0 kg
[2020-09-11 00:05] LABS: BASOPHILS % (AUTO) 0.6 % (0.0-2.0); EOSINOPHILS % (AUTO) 2.3 % (1.0-6.0); HEMATOCRIT 41.2 % (41-53); HEMOGLOBIN 13.9 g/dL (13.5-17.5); LYMPHOCYTES % (AUTO) 29.6 % (22.0-44.0); MEAN CORPUSCULAR HEMOGLOBIN 29.5 pg (26.0-34.0); MEAN CORPUSCULAR HGB CONC 33.7 G/dL (31.0-37.0); MEAN CORPUSCULAR VOLUME 88 fL (80-100); MONOCYTES # (AUTO) 0.6 K/uL (0.1-1.0); MONOCYTES % (AUTO) 9.2 % (2.0-9.0); NEUTROPHILS # (AUTO) 3.9 K/uL (1.8-7.7); NEUTROPHILS % (AUTO) 58.3 % (40.0-70.0); PLATELET COUNT (AUTO) 203 K/uL (150-450); RED BLOOD CELL COUNT(AUTO) 4.71 MIL/uL (4.50-5.90); RED CELL DISTRIBUTION WIDTH 14.7 % (11.5-14.5)
[2020-09-11 00:14] LABS: COVID AG,FIA SOURCE NASOPHARYNGEAL
[2020-09-11 00:29] LABS: ALANINE AMINOTRANSFERASE 14 U/L (12-78); ALBUMIN 3.4 g/dL (3.4-5.0); ALKALINE PHOSPHATASE 75 U/L (46-116); ANION GAP 5 mmol/L (8-16); ASPARTATE AMINOTRANSFERASE 14 U/L (15-37); BILIRUBIN,TOTAL 0.7 mg/dL (0.1-1.0); CARBON DIOXIDE 30 mmol/L (22-29); CHLORIDE 104 mmol/L (98-107); CREATININE 0.87 mg/dL (0.60-1.30); GLOMERULAR FILTR. RATE CALC > 60 mL/min (>60); GLUCOSE,RANDOM 102 mg/dL (70-110); SODIUM SERUM 139 mmol/L (136-145); TOTAL PROTEIN, SERUM 7.3 g/dL (6.4-8.2); UREA NITROGEN, BLOOD 13 mg/dL (7-18)
[2020-09-11] MEDS ORDERED: OLANZapine 5 MG TABLET PO ONE (00:30)
[2020-09-11] MEDS ORDERED: LORazepam 1 MG TABLET PO ONE (00:30)
[2020-09-11 00:31] LABS: VALPROIC ACID < 3 mcg/mL (50-100)
[2020-09-11] MEDS ORDERED: POTASSIUM CHLORIDE 20 MEQ ER TABLET PO ONE (00:45)
[2020-09-11] MEDS ORDERED: OLANZapine 5 MG RAPDIS TABLET PO PRN (00:45)
[2020-09-11] MEDS ORDERED: LORazepam 2 MG TABLET PO PRN (00:45)
[2020-09-11] MEDS ORDERED: ZOLPIDEM TARTRATE 10 MG TABLET PO PRN (00:45)
[2020-09-11] MEDS ORDERED: DOCUSATE SODIUM 100 MG CAPSULE PO PRN (07:30)
[2020-09-11] MEDS ORDERED: NICOTINE 14 MG/24 HOUR PATCH TD PRN (07:30)
[2020-09-11] MEDS ORDERED: PETROLATUM,WHITE 28 GM JELLY TP PRN (07:30)
[2020-09-11] MEDS ORDERED: GuaiFENesin/D-METHORPHAN [SUGAR-FREE] 200-20MG/10 ML SYRUP UDCUP PO PRN (07:30)
[2020-09-11] MEDS ORDERED: CloNIDine HCL 0.1 MG TABLET PO PRN (07:30)
[2020-09-11] MEDS ORDERED: IBUPROFEN 400 MG TABLET PO PRN (07:30)
[2020-09-11] MEDS ORDERED: MAGNESIUM HYDROXIDE SUSPENSION 30 ML UDCUP PO PRN (07:30)
[2020-09-11] MEDS ORDERED: ALBUTEROL SULFATE HFA 90 MCG/PUFF 8 GM INHALER IH PRN (07:30)
[2020-09-11] MEDS ORDERED: MAG HYDROX/AL HYDROX/SIMETH ES 30 ML SUSPENSION UDCUP PO PRN (07:30)
[2020-09-11] MEDS ORDERED: ACETAMINOPHEN 325 MG TABLET PO PRN (07:30)
[2020-09-11] MEDS ORDERED: LOPERAMIDE HCL 2 MG CAPSULE PO PRN (07:30)
[2020-09-11] MEDS ORDERED: ONDANSETRON HCL 4 MG TABLET PO PRN (07:30)
[2020-09-11] MEDS ORDERED: DIGOXIN 125 MCG TABLET PO SCH (09:00)
[2020-09-11] MEDS ORDERED: OMEGA-3/DHA/EPA/FISH OIL 1,000 MG CAPSULE PO SCH ×2 (09:00)
[2020-09-11 12:28] VITALS: BP 133/72
[2020-09-11] MEDS ORDERED: RIVAROXABAN 20 MG TABLET PO SCH (17:30)
== END 2020-09-11 12:38 | disposition other institution (70) ==
LOC: EMS 23:07
DX: F25.9 Schizoaffective disorder, unspecified (principal); F32.9 Major depressive disorder, single episode, unspecified; I48.91 Unspecified atrial fibrillation; J44.9 Chronic obstructive pulmonary disease, unspecified; I10 Essential (primary) hypertension; F17.210 Nicotine dependence, cigarettes, uncomplicated; F14.90 Cocaine use, unspecified, uncomplicated; F12.90 Cannabis use, unspecified, uncomplicated; G89.29 Other chronic pain; Z20.828 Contact with and (suspected) exposure to other viral communicable diseases; Z88.8 Allergy status to other drugs, medicaments and biological substances; Z91.018 Allergy to other foods
CPT/HCPCS: 36415; 80053; 80164; 84132; 85025; 87426; 99285; G0480

== ENCOUNTER 2020-09-11 16:04 | Inpatient (IN) | payer MEDICARE, MEDICAID ==
[~2020-09-11] VITALS: Ht 182.9 cm; Wt 92.7 kg
[2020-09-11] MEDS ORDERED: PERMETHRIN 5% 60 GM CREAM TP ONE (16:45)
[2020-09-11 17:15] VITALS: BP 136/74
[2020-09-11] MEDS ORDERED: GuaiFENesin/D-METHORPHAN [SUGAR-FREE] 200-20MG/10 ML SYRUP UDCUP PO PRN (18:45)
[2020-09-11] MEDS ORDERED: ZOLPIDEM TARTRATE 10 MG TABLET PO PRN (18:45)
[2020-09-11] MEDS ORDERED: LORazepam 2 MG/ML VIAL IM ONE (18:45)
[2020-09-11] MEDS ORDERED: LOPERAMIDE HCL 2 MG CAPSULE PO PRN (18:45)
[2020-09-11] MEDS ORDERED: LORazepam 2 MG TABLET PO PRN (18:45)
[2020-09-11] MEDS ORDERED: FluPHENAZine HCL 2.5 MG/ML INJ IM ONE (18:45)
[2020-09-11] MEDS ORDERED: MAG HYDROX/AL HYDROX/SIMETH ES 30 ML SUSPENSION UDCUP PO PRN (18:45)
[2020-09-11] MEDS ORDERED: DiphenhydrAMINE HCL 50 MG/ML VIAL IM ONE (18:45)
[2020-09-11] MEDS ORDERED: OLANZapine 5 MG RAPDIS TABLET PO PRN (18:45)
[2020-09-11] MEDS ORDERED: ACETAMINOPHEN 325 MG TABLET PO PRN (18:45)
[2020-09-11] MEDS ORDERED: PROMETHAZINE HCL 25 MG TABLET PO PRN (18:45)
[2020-09-11] MEDS ORDERED: HydrOXYzine PAMOATE 50 MG CAPSULE PO PRN (18:45)
[2020-09-11] MEDS ORDERED: OLANZapine 5 MG RAPDIS TABLET PO SCH (21:00)
[2020-09-11] MEDS: DIVALPROEX SODIUM 500 MG ER TABLET PO SCH (21:43)
[2020-09-11] MEDS ORDERED: POTASSIUM CHLORIDE 20 MEQ ER TABLET PO ONE (22:00)
[2020-09-12 08:00] VITALS: BP 144/84
[2020-09-12] MEDS ORDERED: POTASSIUM CHLORIDE 20 MEQ ER TABLET PO ONE ×2 (09:00→15:15)
[2020-09-12] MEDS: MULTIVITAMINS WITH MINERALS, THERAPEUTIC TABLET PO SCH (09:04)
[2020-09-12] MEDS: OMEGA-3/DHA/EPA/FISH OIL 1,000 MG CAPSULE PO SCH (09:05)
[2020-09-12] MEDS: THIAMINE 100 MG TABLET PO SCH ×2 (09:05→17:00)
[2020-09-12] MEDS: FOLIC ACID 1 MG TABLET PO SCH (09:05)
[2020-09-12] MEDS: NALTREXONE HCL 50 MG TABLET PO SCH (09:06)
[2020-09-12] MEDS: DIGOXIN 125 MCG TABLET PO SCH (09:07)
[2020-09-12] MEDS: RIVAROXABAN 20 MG TABLET PO SCH (17:30)
[2020-09-12] MEDS: DIVALPROEX SODIUM 500 MG ER TABLET PO SCH (21:00)
[2020-09-12] MEDS: OLANZapine 10 MG RAPDIS TABLET PO SCH (21:00)
[2020-09-13 06:50] LABS: BASOPHILS % (AUTO) 0.5 % (0.0-2.0); EOSINOPHILS % (AUTO) 3.7 % (1.0-6.0); HEMATOCRIT 44.5 % (41-53); HEMOGLOBIN 15.7 g/dL (13.5-17.5); LYMPHOCYTES # (AUTO) 3.1 K/uL (1.0-4.8); LYMPHOCYTES % (AUTO) 56.7 % (22.0-44.0); MEAN CORPUSCULAR HGB CONC 35.3 G/dL (31.0-37.0); MEAN CORPUSCULAR VOLUME 88 fL (80-100); MONOCYTES # (AUTO) 0.4 K/uL (0.1-1.0); MONOCYTES % (AUTO) 7.9 % (2.0-9.0); NEUTROPHILS # (AUTO) 1.7 K/uL (1.8-7.7); NEUTROPHILS % (AUTO) 31.2 % (40.0-70.0); PLATELET COUNT (AUTO) 204 K/uL (150-450); RED BLOOD CELL COUNT(AUTO) 5.05 MIL/uL (4.50-5.90); RED CELL DISTRIBUTION WIDTH 14.9 % (11.5-14.5)
[2020-09-13 07:13] LABS: CARBON DIOXIDE 30 mmol/L (22-29); CHLORIDE 106 mmol/L (98-107); POTASSIUM 4.1 mmol/L (3.5-5.1); SODIUM SERUM 139 mmol/L (136-145)
[2020-09-13 07:14] LABS: ALANINE AMINOTRANSFERASE 15 U/L (12-78); ALBUMIN 3.1 g/dL (3.4-5.0); ALKALINE PHOSPHATASE 66 U/L (46-116); ANION GAP 3 mmol/L (8-16); ASPARTATE AMINOTRANSFERASE 15 U/L (15-37); BILIRUBIN,TOTAL 0.6 mg/dL (0.1-1.0); CHOL/HDL RATIO 2.5 (4.2-7.3); CHOLESTEROL 117 mg/dL (131-200); CREATININE 0.72 mg/dL (0.60-1.30); GLOMERULAR FILTR. RATE CALC > 60 mL/min (>60); GLUCOSE,RANDOM 90 mg/dL (70-110); HDL CHOLESTEROL 47 mg/dL (40-60); LDL CHOL (CALC.) 61 mg/dL (0-130); TOTAL PROTEIN, SERUM 7.2 g/dL (6.4-8.2); TRIGLYCERIDES 44 mg/dL (15-150); UREA NITROGEN, BLOOD 10 mg/dL (7-18)
[2020-09-13 07:54] LABS: HEMOGLOBIN A1C 5.2 % (3.8-5.6)
[2020-09-13] MEDS: THIAMINE 100 MG TABLET PO SCH ×2 (09:23→16:23)
[2020-09-13 09:24] VITALS: BP 143/89
[2020-09-13] MEDS: NALTREXONE HCL 50 MG TABLET PO SCH (09:24)
[2020-09-13] MEDS: DIGOXIN 125 MCG TABLET PO SCH (09:24)
[2020-09-13] MEDS: FOLIC ACID 1 MG TABLET PO SCH (09:24)
[2020-09-13] MEDS: MULTIVITAMINS WITH MINERALS, THERAPEUTIC TABLET PO SCH (09:24)
[2020-09-13] MEDS: OMEGA-3/DHA/EPA/FISH OIL 1,000 MG CAPSULE PO SCH (09:27)
[2020-09-13] MEDS: RIVAROXABAN 20 MG TABLET PO SCH (16:23)
[2020-09-13 20:06] VITALS: BP 151/74
[2020-09-13] MEDS: OLANZapine 10 MG RAPDIS TABLET PO SCH (20:13)
[2020-09-13] MEDS: DIVALPROEX SODIUM 500 MG ER TABLET PO SCH (20:19)
[2020-09-14] MEDS: FOLIC ACID 1 MG TABLET PO SCH (09:04)
[2020-09-14] MEDS: THIAMINE 100 MG TABLET PO SCH ×2 (09:04→16:59)
[2020-09-14] MEDS: OMEGA-3/DHA/EPA/FISH OIL 1,000 MG CAPSULE PO SCH (09:05)
[2020-09-14] MEDS: NALTREXONE HCL 50 MG TABLET PO SCH (09:05)
[2020-09-14] MEDS: DIGOXIN 125 MCG TABLET PO SCH (09:05)
[2020-09-14] MEDS: MULTIVITAMINS WITH MINERALS, THERAPEUTIC TABLET PO SCH (09:08)
[2020-09-14 09:16] VITALS: BP 133/57
[2020-09-14 16:40] VITALS: BP 160/86
[2020-09-14] MEDS: RIVAROXABAN 20 MG TABLET PO SCH (16:59)
[2020-09-14] MEDS: VALPROIC ACID 250 MG/5 ML SYRUP UDCUP PO SCH (20:32)
[2020-09-14] MEDS: OLANZapine 10 MG RAPDIS TABLET PO SCH (20:33)
[2020-09-15] MEDS: MULTIVITAMINS WITH MINERALS, THERAPEUTIC TABLET PO SCH (08:27)
[2020-09-15] MEDS: FOLIC ACID 1 MG TABLET PO SCH (08:28)
[2020-09-15] MEDS: DIGOXIN 125 MCG TABLET PO SCH (08:28)
[2020-09-15] MEDS: THIAMINE 100 MG TABLET PO SCH ×2 (08:28→16:35)
[2020-09-15] MEDS: NALTREXONE HCL 50 MG TABLET PO SCH (08:28)
[2020-09-15] MEDS: OMEGA-3/DHA/EPA/FISH OIL 1,000 MG CAPSULE PO SCH (08:28)
[2020-09-15 08:57] VITALS: BP 132/78
[2020-09-15] MEDS: RIVAROXABAN 20 MG TABLET PO SCH (16:35)
[2020-09-15 18:26] VITALS: BP 144/81
[2020-09-15] MEDS: VALPROIC ACID 250 MG/5 ML SYRUP UDCUP PO SCH (20:13)
[2020-09-15] MEDS: OLANZapine 10 MG RAPDIS TABLET PO SCH (20:14)
[2020-09-15] MEDS: MAGNESIUM HYDROXIDE SUSPENSION 30 ML UDCUP PO PRN (21:07)
[2020-09-16 08:00] VITALS: BP 151/90
[2020-09-16] MEDS: MULTIVITAMINS WITH MINERALS, THERAPEUTIC TABLET PO SCH (09:59)
[2020-09-16] MEDS: THIAMINE 100 MG TABLET PO SCH ×2 (10:00→16:35)
[2020-09-16] MEDS: NALTREXONE HCL 50 MG TABLET PO SCH (10:00)
[2020-09-16] MEDS: OMEGA-3/DHA/EPA/FISH OIL 1,000 MG CAPSULE PO SCH (10:00)
[2020-09-16] MEDS: FOLIC ACID 1 MG TABLET PO SCH (10:01)
[2020-09-16] MEDS: DIGOXIN 125 MCG TABLET PO SCH (10:02)
[2020-09-16] MEDS: RIVAROXABAN 20 MG TABLET PO SCH (16:35)
[2020-09-16 18:11] VITALS: BP 122/86
[2020-09-16] MEDS: OLANZapine 10 MG RAPDIS TABLET PO SCH (20:32)
[2020-09-16] MEDS: VALPROIC ACID 250 MG/5 ML SYRUP UDCUP PO SCH (20:34)
[2020-09-17 08:38] VITALS: BP 143/77
[2020-09-17] MEDS: THIAMINE 100 MG TABLET PO SCH ×2 (09:10→16:38)
[2020-09-17] MEDS: FOLIC ACID 1 MG TABLET PO SCH (09:11)
[2020-09-17] MEDS: NALTREXONE HCL 50 MG TABLET PO SCH (09:11)
[2020-09-17] MEDS: OMEGA-3/DHA/EPA/FISH OIL 1,000 MG CAPSULE PO SCH (09:11)
[2020-09-17] MEDS: MULTIVITAMINS WITH MINERALS, THERAPEUTIC TABLET PO SCH (09:11)
[2020-09-17] MEDS: DIGOXIN 125 MCG TABLET PO SCH (09:12)
[2020-09-17 16:33] VITALS: BP 130/71
[2020-09-17] MEDS: RIVAROXABAN 20 MG TABLET PO SCH (16:38)
[2020-09-17] MEDS: OLANZapine 10 MG RAPDIS TABLET PO SCH (20:27)
[2020-09-17] MEDS: VALPROIC ACID 250 MG/5 ML SYRUP UDCUP PO SCH (20:32)
[2020-09-18] MEDS: THIAMINE 100 MG TABLET PO SCH ×2 (09:34→17:06)
[2020-09-18] MEDS: NALTREXONE HCL 50 MG TABLET PO SCH (09:34)
[2020-09-18] MEDS: FOLIC ACID 1 MG TABLET PO SCH (09:34)
[2020-09-18] MEDS: OMEGA-3/DHA/EPA/FISH OIL 1,000 MG CAPSULE PO SCH (09:34)
[2020-09-18] MEDS: DIGOXIN 125 MCG TABLET PO SCH (09:35)
[2020-09-18] MEDS: MULTIVITAMINS WITH MINERALS, THERAPEUTIC TABLET PO SCH (09:35)
[2020-09-18 10:28] VITALS: BP 111/47
[2020-09-18 13:27] VITALS: BP 153/100
[2020-09-18 16:56] VITALS: BP 109/77
[2020-09-18] MEDS: RIVAROXABAN 20 MG TABLET PO SCH (17:06)
[2020-09-18] MEDS: OLANZapine 10 MG RAPDIS TABLET PO SCH (20:34)
[2020-09-18] MEDS: VALPROIC ACID 250 MG/5 ML SYRUP UDCUP PO SCH (20:38)
[2020-09-19 08:15] VITALS: BP 125/63
[2020-09-19] MEDS: DIGOXIN 125 MCG TABLET PO SCH (08:58)
[2020-09-19] MEDS: NALTREXONE HCL 50 MG TABLET PO SCH (08:58)
[2020-09-19] MEDS: OMEGA-3/DHA/EPA/FISH OIL 1,000 MG CAPSULE PO SCH (08:58)
[2020-09-19] MEDS: THIAMINE 100 MG TABLET PO SCH ×2 (08:58→16:34)
[2020-09-19] MEDS: MULTIVITAMINS WITH MINERALS, THERAPEUTIC TABLET PO SCH (08:58)
[2020-09-19] MEDS: FOLIC ACID 1 MG TABLET PO SCH (08:58)
[2020-09-19] MEDS: MAGNESIUM HYDROXIDE SUSPENSION 30 ML UDCUP PO PRN (09:01)
[2020-09-19] MEDS: RIVAROXABAN 20 MG TABLET PO SCH (16:34)
[2020-09-19 16:51] VITALS: BP 149/88
[2020-09-19] MEDS: OLANZapine 10 MG RAPDIS TABLET PO SCH (20:14)
[2020-09-19] MEDS: VALPROIC ACID 250 MG/5 ML SYRUP UDCUP PO SCH (20:17)
[2020-09-20 08:00] VITALS: BP 121/64
[2020-09-20] MEDS: FOLIC ACID 1 MG TABLET PO SCH (08:40)
[2020-09-20] MEDS: DIGOXIN 125 MCG TABLET PO SCH (08:40)
[2020-09-20] MEDS: MULTIVITAMINS WITH MINERALS, THERAPEUTIC TABLET PO SCH (08:41)
[2020-09-20] MEDS: OMEGA-3/DHA/EPA/FISH OIL 1,000 MG CAPSULE PO SCH (08:41)
[2020-09-20] MEDS: THIAMINE 100 MG TABLET PO SCH ×2 (08:41→16:33)
[2020-09-20] MEDS: NALTREXONE HCL 50 MG TABLET PO SCH (08:41)
[2020-09-20 16:00] VITALS: BP 129/89
[2020-09-20] MEDS: RIVAROXABAN 20 MG TABLET PO SCH (16:33)
[2020-09-20] MEDS: OLANZapine 10 MG RAPDIS TABLET PO SCH (20:24)
[2020-09-20] MEDS: DIVALPROEX SODIUM 500 MG ER TABLET PO SCH (20:28)
[2020-09-21] MEDS: OMEGA-3/DHA/EPA/FISH OIL 1,000 MG CAPSULE PO SCH (12:55)
[2020-09-21] MEDS: DIGOXIN 125 MCG TABLET PO SCH (12:55)
[2020-09-21] MEDS: MULTIVITAMINS WITH MINERALS, THERAPEUTIC TABLET PO SCH (12:55)
[2020-09-21] MEDS: FOLIC ACID 1 MG TABLET PO SCH (12:56)
[2020-09-21] MEDS: NALTREXONE HCL 50 MG TABLET PO SCH (12:56)
[2020-09-21] MEDS: THIAMINE 100 MG TABLET PO SCH ×2 (12:57→16:22)
[2020-09-21 16:00] VITALS: BP 127/64
[2020-09-21] MEDS: MAGNESIUM HYDROXIDE SUSPENSION 30 ML UDCUP PO PRN (16:21)
[2020-09-21] MEDS: RIVAROXABAN 20 MG TABLET PO SCH (16:22)
[2020-09-21] MEDS: OLANZapine 10 MG RAPDIS TABLET PO SCH (20:25)
[2020-09-21] MEDS: DIVALPROEX SODIUM 500 MG ER TABLET PO SCH (20:26)
[2020-09-22 08:00] VITALS: BP 144/90
[2020-09-22] MEDS: OMEGA-3/DHA/EPA/FISH OIL 1,000 MG CAPSULE PO SCH (08:52)
[2020-09-22] MEDS: DIGOXIN 125 MCG TABLET PO SCH (08:52)
[2020-09-22] MEDS: NALTREXONE HCL 50 MG TABLET PO SCH (08:52)
[2020-09-22] MEDS: MULTIVITAMINS WITH MINERALS, THERAPEUTIC TABLET PO SCH (08:52)
[2020-09-22] MEDS: MAGNESIUM HYDROXIDE SUSPENSION 30 ML UDCUP PO PRN (15:05)
[2020-09-22] MEDS: RIVAROXABAN 20 MG TABLET PO SCH (16:58)
[2020-09-22] MEDS: OLANZapine 10 MG RAPDIS TABLET PO SCH (20:29)
[2020-09-22] MEDS: DIVALPROEX SODIUM 500 MG ER TABLET PO SCH (20:36)
[2020-09-23] MEDS: NALTREXONE HCL 50 MG TABLET PO SCH (09:19)
[2020-09-23] MEDS: OMEGA-3/DHA/EPA/FISH OIL 1,000 MG CAPSULE PO SCH (09:19)
[2020-09-23] MEDS: DIGOXIN 125 MCG TABLET PO SCH (09:19)
[2020-09-23] MEDS: MULTIVITAMINS WITH MINERALS, THERAPEUTIC TABLET PO SCH (09:19)
[2020-09-23 09:22] VITALS: BP 146/69
[2020-09-23 16:08] VITALS: BP 137/85
[2020-09-23] MEDS: RIVAROXABAN 20 MG TABLET PO SCH (16:37)
[2020-09-23] MEDS: DIVALPROEX SODIUM 500 MG ER TABLET PO SCH (20:25)
[2020-09-23] MEDS: OLANZapine 10 MG RAPDIS TABLET PO SCH (20:28)
[2020-09-24] MEDS: NALTREXONE HCL 50 MG TABLET PO SCH (11:50)
[2020-09-24] MEDS: DIGOXIN 125 MCG TABLET PO SCH (11:50)
[2020-09-24] MEDS: MULTIVITAMINS WITH MINERALS, THERAPEUTIC TABLET PO SCH (11:50)
[2020-09-24] MEDS: OMEGA-3/DHA/EPA/FISH OIL 1,000 MG CAPSULE PO SCH (11:50)
[2020-09-24] MEDS: MAGNESIUM HYDROXIDE SUSPENSION 30 ML UDCUP PO PRN (14:17)
[2020-09-24 16:37] VITALS: BP 129/78
[2020-09-24] MEDS: RIVAROXABAN 20 MG TABLET PO SCH (16:48)
[2020-09-24] MEDS: DIVALPROEX SODIUM 500 MG ER TABLET PO SCH (20:43)
[2020-09-24] MEDS: OLANZapine 10 MG RAPDIS TABLET PO SCH (20:43)
[2020-09-25] MEDS: MULTIVITAMINS WITH MINERALS, THERAPEUTIC TABLET PO SCH (08:48)
[2020-09-25] MEDS: OMEGA-3/DHA/EPA/FISH OIL 1,000 MG CAPSULE PO SCH (08:48)
[2020-09-25] MEDS: DIGOXIN 125 MCG TABLET PO SCH (08:49)
[2020-09-25] MEDS: NALTREXONE HCL 50 MG TABLET PO SCH (08:49)
[2020-09-25 09:09] VITALS: BP 157/97
[2020-09-25 15:38] LABS: COVID AG,FIA SOURCE NASOPHARYNGEAL
[2020-09-25 16:00] VITALS: BP 116/64
[2020-09-25] MEDS: RIVAROXABAN 20 MG TABLET PO SCH (17:20)
[2020-09-25] MEDS: DIVALPROEX SODIUM 500 MG ER TABLET PO SCH (20:09)
[2020-09-25] MEDS: OLANZapine 10 MG RAPDIS TABLET PO SCH (20:09)
[2020-09-26 09:00] VITALS: BP 125/81
[2020-09-26] MEDS: MULTIVITAMINS WITH MINERALS, THERAPEUTIC TABLET PO SCH (09:14)
[2020-09-26] MEDS: OMEGA-3/DHA/EPA/FISH OIL 1,000 MG CAPSULE PO SCH (09:15)
[2020-09-26] MEDS: NALTREXONE HCL 50 MG TABLET PO SCH (09:15)
[2020-09-26] MEDS: DIGOXIN 125 MCG TABLET PO SCH (09:15)
[2020-09-26] MEDS: RIVAROXABAN 20 MG TABLET PO SCH (16:32)
[2020-09-26 16:50] VITALS: BP 102/69
[2020-09-26] MEDS: DIVALPROEX SODIUM 500 MG ER TABLET PO SCH (20:39)
[2020-09-26] MEDS: OLANZapine 10 MG RAPDIS TABLET PO SCH (20:40)
[2020-09-27 09:13] VITALS: BP 107/46
[2020-09-27] MEDS: DIGOXIN 125 MCG TABLET PO SCH (09:47)
[2020-09-27] MEDS: OMEGA-3/DHA/EPA/FISH OIL 1,000 MG CAPSULE PO SCH (09:47)
[2020-09-27] MEDS: MULTIVITAMINS WITH MINERALS, THERAPEUTIC TABLET PO SCH (09:48)
[2020-09-27] MEDS: NALTREXONE HCL 50 MG TABLET PO SCH (09:48)
[2020-09-27 16:00] VITALS: BP 131/73
[2020-09-27] MEDS: RIVAROXABAN 20 MG TABLET PO SCH (17:09)
[2020-09-27] MEDS: OLANZapine 10 MG RAPDIS TABLET PO SCH (20:22)
[2020-09-27] MEDS: DIVALPROEX SODIUM 500 MG ER TABLET PO SCH (20:22)
[2020-09-28] MEDS: NALTREXONE HCL 50 MG TABLET PO SCH (08:14)
[2020-09-28] MEDS: DIGOXIN 125 MCG TABLET PO SCH (08:21)
[2020-09-28] MEDS: MULTIVITAMINS WITH MINERALS, THERAPEUTIC TABLET PO SCH (08:21)
[2020-09-28] MEDS: OMEGA-3/DHA/EPA/FISH OIL 1,000 MG CAPSULE PO SCH (08:21)
[2020-09-28] MEDS: RIVAROXABAN 20 MG TABLET PO SCH (17:18)
[2020-09-28 19:01] VITALS: BP 139/87
[2020-09-28] MEDS: OLANZapine 10 MG RAPDIS TABLET PO SCH (20:54)
[2020-09-28] MEDS: DIVALPROEX SODIUM 500 MG ER TABLET PO SCH (20:54)
[2020-09-29 07:07] LABS: ALANINE AMINOTRANSFERASE 15 U/L (12-78); ALBUMIN 3.2 g/dL (3.4-5.0); ALKALINE PHOSPHATASE 59 U/L (46-116); ANION GAP 8 mmol/L (8-16); ASPARTATE AMINOTRANSFERASE 9 U/L (15-37); BILIRUBIN,TOTAL 0.6 mg/dL (0.1-1.0); CARBON DIOXIDE 27 mmol/L (22-29); CHLORIDE 108 mmol/L (98-107); CREATININE 0.85 mg/dL (0.60-1.30); GLOMERULAR FILTR. RATE CALC > 60 mL/min (>60); GLUCOSE,RANDOM 89 mg/dL (70-110); POTASSIUM 3.9 mmol/L (3.5-5.1); SODIUM SERUM 143 mmol/L (136-145); TOTAL PROTEIN, SERUM 6.3 g/dL (6.4-8.2); UREA NITROGEN, BLOOD 19 mg/dL (7-18)
[2020-09-29] MEDS: NALTREXONE HCL 50 MG TABLET PO SCH (09:17)
[2020-09-29] MEDS: MULTIVITAMINS WITH MINERALS, THERAPEUTIC TABLET PO SCH (09:17)
[2020-09-29] MEDS: OMEGA-3/DHA/EPA/FISH OIL 1,000 MG CAPSULE PO SCH (09:17)
[2020-09-29] MEDS: DIGOXIN 125 MCG TABLET PO SCH (09:17)
[2020-09-29 10:15] VITALS: BP 147/88
[2020-09-29] MEDS: RIVAROXABAN 20 MG TABLET PO SCH (16:57)
[2020-09-29] MEDS: DIVALPROEX SODIUM 500 MG ER TABLET PO SCH (20:39)
[2020-09-29] MEDS: OLANZapine 10 MG RAPDIS TABLET PO SCH (20:39)
[2020-09-30] MEDS: OMEGA-3/DHA/EPA/FISH OIL 1,000 MG CAPSULE PO SCH (08:27)
[2020-09-30] MEDS: MULTIVITAMINS WITH MINERALS, THERAPEUTIC TABLET PO SCH (08:27)
[2020-09-30] MEDS: DIGOXIN 125 MCG TABLET PO SCH (08:28)
[2020-09-30] MEDS: NALTREXONE HCL 50 MG TABLET PO SCH (08:28)
[2020-09-30 16:00] VITALS: BP 139/80
[2020-09-30] MEDS: RIVAROXABAN 20 MG TABLET PO SCH (16:48)
[2020-09-30] MEDS: DIVALPROEX SODIUM 500 MG ER TABLET PO SCH (20:45)
[2020-09-30] MEDS: OLANZapine 10 MG RAPDIS TABLET PO SCH (20:46)
[2020-10-01] MEDS: NALTREXONE HCL 50 MG TABLET PO SCH (09:19)
[2020-10-01] MEDS: OMEGA-3/DHA/EPA/FISH OIL 1,000 MG CAPSULE PO SCH (09:19)
[2020-10-01] MEDS: MULTIVITAMINS WITH MINERALS, THERAPEUTIC TABLET PO SCH (09:20)
[2020-10-01] MEDS: DIGOXIN 125 MCG TABLET PO SCH (09:21)
[2020-10-01 09:51] VITALS: BP 153/91
[2020-10-01] MEDS: RIVAROXABAN 20 MG TABLET PO SCH (16:36)
[2020-10-01 18:43] VITALS: BP 114/57
[2020-10-01] MEDS: DIVALPROEX SODIUM 500 MG ER TABLET PO SCH (20:49)
[2020-10-01] MEDS: OLANZapine 10 MG RAPDIS TABLET PO SCH (20:49)
[2020-10-02 08:00] VITALS: BP 141/104
[2020-10-02] MEDS: DIGOXIN 125 MCG TABLET PO SCH (08:28)
[2020-10-02] MEDS: OMEGA-3/DHA/EPA/FISH OIL 1,000 MG CAPSULE PO SCH (08:28)
[2020-10-02] MEDS: NALTREXONE HCL 50 MG TABLET PO SCH (08:28)
[2020-10-02] MEDS: MULTIVITAMINS WITH MINERALS, THERAPEUTIC TABLET PO SCH (08:28)
[2020-10-02] MEDS: RIVAROXABAN 20 MG TABLET PO SCH (16:56)
[2020-10-02 17:14] VITALS: BP 119/80
[2020-10-02] MEDS: DIVALPROEX SODIUM 500 MG ER TABLET PO SCH (20:56)
[2020-10-02] MEDS: OLANZapine 10 MG RAPDIS TABLET PO SCH (20:56)
[2020-10-02] MEDS ORDERED: QUEtiapine FUMARATE 100 MG TABLET PO PRN (21:15)
[2020-10-03 08:00] VITALS: BP 114/85
[2020-10-03] MEDS: MULTIVITAMINS WITH MINERALS, THERAPEUTIC TABLET PO SCH (08:17)
[2020-10-03] MEDS: NALTREXONE HCL 50 MG TABLET PO SCH (08:17)
[2020-10-03] MEDS: DIGOXIN 125 MCG TABLET PO SCH (08:17)
[2020-10-03] MEDS: OMEGA-3/DHA/EPA/FISH OIL 1,000 MG CAPSULE PO SCH (08:17)
[2020-10-03] MEDS ORDERED: DIVA-80 PO (13:33)
[2020-10-03] MEDS ORDERED: QUET200T29 PO (13:33)
[2020-10-03] MEDS ORDERED: NALT50TA PO (13:33)
[2020-10-03] MEDS ORDERED: QUEtiapine FUMARATE 200 MG TABLET PO SCH (21:00)
== END 2020-10-03 15:10 | disposition home or self-care (01) | DRG 885 ==
LOC: EMS 16:07 → 3EX 16:56
PROVIDERS: ADMIT Psychiatry & Neurology Psychiatry; ATTEND Psychiatry & Neurology Psychiatry
DX: F25.9 Schizoaffective disorder, unspecified (principal); B86 Scabies; I48.91 Unspecified atrial fibrillation; J44.9 Chronic obstructive pulmonary disease, unspecified; F25.0 Schizoaffective disorder, bipolar type; F25.1 Schizoaffective disorder, depressive type; I10 Essential (primary) hypertension; F17.210 Nicotine dependence, cigarettes, uncomplicated; F12.90 Cannabis use, unspecified, uncomplicated; F14.90 Cocaine use, unspecified, uncomplicated; G62.9 Polyneuropathy, unspecified; G89.29 Other chronic pain; M19.90 Unspecified osteoarthritis, unspecified site; M54.9 Dorsalgia, unspecified; R41.843 Psychomotor deficit; Z20.828 Contact with and (suspected) exposure to other viral communicable diseases; M17.0 Bilateral primary osteoarthritis of knee; Z88.8 Allergy status to other drugs, medicaments and biological substances; Z79.899 Other long term (current) drug therapy; Z91.018 Allergy to other foods; Z55.9 Problems related to education and literacy, unspecified; Z59.0 Homelessness; Z65.3 Problems related to other legal circumstances; Z91.19 Patient's noncompliance with other medical treatment and regimen
CPT/HCPCS: 83036; 86592; 87081; 87426; G0378; J1200; J2060; J3490

== ENCOUNTER 2025-07-26 16:48 | Inpatient (IN) | payer MEDICARE, OTHER ==
[~2025-07-26] VITALS: Ht 190.5 cm; Wt 98.7 kg
[~2025-07-26 16:48] MED LIST changes: -DIGO125T84 PO; +DIVA-153 PO; -DIVA-80 PO; +MELA5TAB40 PO; -NALT50TA PO; +NALT50TA33 PO; -OLAN10TA20 PO; -OMEG-135 PO; +QUET200T30 PO; -RIVA20TA PO
[2025-07-26 17:17] LABS: PLATELET COUNT (AUTO) 238 K/uL (150-450); RED BLOOD CELL COUNT(AUTO) 4.78 MIL/uL (4.50-5.90); RED CELL DISTRIBUTION WIDTH 15.1 % (11.5-14.5); WHITE BLOOD COUNT (AUTO) 5.6 K/uL (4.5-11.0)
[2025-07-26 17:23] LABS: CALCIUM, TOTAL 8.6 mg/dL (8.8-10.5); CREATININE 0.90 mg/dL (0.60-1.30); GLOMERULAR FILTR. RATE CALC > 60 mL/min (>60); GLUCOSE,RANDOM 96 mg/dL (70-110); SODIUM SERUM 139 mmol/L (136-145); UREA NITROGEN, BLOOD 18 mg/dL (7-18)
[2025-07-26 17:33] LABS: TROPONIN I-HIGH SENSITIVITY 10 ng/L (<76)
[2025-07-26] MEDS: POTASSIUM CHLORIDE 20 MEQ ER TABLET PO ONE (18:24)
[2025-07-26] MEDS: CefTRIAXone 1 GM/DEXTROSE 50 ML IV ONE (21:59)
[2025-07-27] MEDS ORDERED: ACETAMINOPHEN 325 MG TABLET PO PRN (02:30)
[2025-07-27] MEDS ORDERED: MAGNESIUM HYDROXIDE SUSPENSION 30 ML UDCUP PO PRN (02:30)
[2025-07-27] MEDS ORDERED: ZOLPIDEM TARTRATE 5 MG TABLET PO PRN ×2 (02:30→13:30)
[2025-07-27] MEDS ORDERED: IPRATROPIUM BROMIDE 0.5 MG/2.5 ML NEB SOLUTION NEB PRN ×2 (02:30→13:30)
[2025-07-27] MEDS ORDERED: ALBUTEROL SULFATE 2.5 MG/0.5 ML NEB SOLUTION NEB PRN ×2 (02:30→13:30)
[2025-07-27] MEDS ORDERED: BISACODYL 10 MG RECTAL RECTAL SUPPOSITORY PR PRN (02:30)
[2025-07-27] MEDS ORDERED: ONDANSETRON HCL 4 MG/2 ML VIAL IVP PRN (02:30)
[2025-07-27 04:22] VITALS: BP 140/73; PULSE 65; RESP 20; TEMP 97.7; O2SAT 95
[2025-07-27] MEDS: HEPARIN SODIUM,PORCINE 5,000 UNITS/ML VIAL SQ SCH (08:00)
[2025-07-27 08:48] VITALS: BP 105/57; PULSE 52; RESP 18; TEMP 97.5; O2SAT 98
[2025-07-27] MEDS: PANTOPRAZOLE SODIUM 40 MG DR TABLET PO SCH (09:00)
[2025-07-27] MEDS: NALTREXONE HCL 50 MG TABLET PO SCH (09:00)
[2025-07-27] MEDS ORDERED: POTASSIUM CHL 10 MEQ/WATER 50 ML IV PRN (12:45)
[2025-07-27] MEDS: POTASSIUM CHLORIDE 20 MEQ ER TABLET PO PRN (13:25)
[2025-07-27] MEDS ORDERED: OxyCODONE HCL/ACETAMINOPHEN 5-325 MG TABLET PO PRN (13:30)
[2025-07-27] MEDS: *CLINICAL-LEVOFLOXACIN IVPB DOSING CLINICAL ONE (13:49)
[2025-07-27 14:15] LABS: PH,URINE DRUG SCREEN 8.0 (5.0-8.0)
[2025-07-27] MEDS ORDERED: SODIUM CHLORIDE 0.9% 500 ML IV ONE (14:21)
[2025-07-27 14:29] LABS: ALCOHOL, URINE DRUG SCREEN NEGATIVE (NEGATIVE); AMPHET/METH SCREEN,URINE NEGATIVE (NEGATIVE); BARBITURATE SCREEN, URINE NEGATIVE (NEGATIVE); CANNABINOID SCREEN,URINE POSITIVE (NEGATIVE); COCAINE SCREEN,URINE POSITIVE (NEGATIVE); METHADONE SCREEN, URINE NEGATIVE (NEGATIVE)
[2025-07-27] MEDS: LEVOFLOXACIN 750 MG/D5% WATER 150 ML IV SCH (14:34)
[2025-07-27] MEDS ORDERED: ZOLPIDEM TARTRATE 10 MG TABLET PO PRN (15:00)
[2025-07-27 15:42] VITALS: BP 127/91; PULSE 61; RESP 18; TEMP 98.1; O2SAT 97
[2025-07-27] MEDS ORDERED: OLANZapine 5 MG RAPDIS TABLET PO PRN (18:30)
[2025-07-27 20:16] VITALS: BP 123/67; PULSE 61; RESP 18; TEMP 98.2; O2SAT 94
[2025-07-27] MEDS: OLANZapine 5 MG RAPDIS TABLET PO SCH (20:41)
[2025-07-27] MEDS: MELATONIN 5 MG TABLET PO SCH (20:41)
[2025-07-27] MEDS: DIVALPROEX SODIUM 500 MG ER TABLET PO SCH (20:41)
[2025-07-28 08:31] VITALS: BP 138/82; PULSE 56; RESP 18; TEMP 98; O2SAT 98
[2025-07-28 14:31] LABS: COVID AG,FIA SOURCE NASAL SWAB
[2025-07-28 15:01] LABS: SARS-COV2 (COVID) ANTIGEN,FIA Negative (Negative)
[2025-07-28] MEDS ORDERED: DIVA500T52 PO (16:18)
[2025-07-28] MEDS ORDERED: MELA5TAB40 PO (16:23)
[2025-07-28] MEDS ORDERED: LEVO750T68 PO (16:23)
[2025-07-28] MEDS ORDERED: PANT-31 PO (16:26)
[2025-07-28] MEDS ORDERED: OLAN5TAB94 PO ×2 (16:27→16:28)
[2025-07-28 16:33] VITALS: BP 128/78; PULSE 68; RESP 18; TEMP 98.2; O2SAT 97
[2025-07-28 19:44] VITALS: BP 122/67; PULSE 59; RESP 18; TEMP 98.2; O2SAT 99
== END 2025-07-28 22:45 | DRG 603 ==
LOC: EMS 16:48 → EDH 07-27 02:27 → 4E 07-27 04:02
PROVIDERS: ADMIT Hospitalist; ATTEND Hospitalist
PROC: GZ56ZZZ Individual Psychotherapy, Supportive (ICD-10-PCS; principal; 2025-07-28)
DX: L03.115 Cellulitis of right lower limb (principal); Z59.00 Homelessness unspecified; L03.116 Cellulitis of left lower limb; E87.6 Hypokalemia; J44.9 Chronic obstructive pulmonary disease, unspecified; I48.0 Paroxysmal atrial fibrillation; G89.29 Other chronic pain; Z20.822 Contact with and (suspected) exposure to COVID-19; F14.10 Cocaine abuse, uncomplicated; F12.10 Cannabis abuse, uncomplicated; F31.9 Bipolar disorder, unspecified; F25.9 Schizoaffective disorder, unspecified; G62.9 Polyneuropathy, unspecified; I10 Essential (primary) hypertension; Z86.73 Personal history of transient ischemic attack (TIA), and cerebral infarction without residual deficits; Z91.199 Patient's noncompliance with other medical treatment and regimen due to unspecified reason; Z88.8 Allergy status to other drugs, medicaments and biological substances; Z91.018 Allergy to other foods
CPT/HCPCS: 71045; 80048; 80307; 84132; 84484; 85025; 93005; 93306; 99285; G0378; J0696; J1644; J1956; J7040; 36415-L1; 36415-TC

== ENCOUNTER 2025-07-28 14:46 | Inpatient (IN) | payer MEDICARE, MEDICAID ==
[~2025-07-28] VITALS: Ht 190.5 cm; Wt 94.8 kg
[~2025-07-28 14:46] MED LIST changes: -MELA5TAB40 PO; -QUET200T30 PO
[2025-07-28] MEDS ORDERED: LOPERAMIDE HCL 2 MG CAPSULE PO PRN (15:15)
[2025-07-28] MEDS ORDERED: GuaiFENesin/D-METHORPHAN [SUGAR-FREE] 200-20MG/10 ML SYRUP UDCUP PO PRN (15:15)
[2025-07-28] MEDS ORDERED: PROMETHAZINE HCL 25 MG TABLET PO PRN (15:15)
[2025-07-28] MEDS ORDERED: MAGNESIUM HYDROXIDE SUSPENSION 30 ML UDCUP PO PRN (15:15)
[2025-07-28] MEDS ORDERED: MAG HYDROX/ALUMINUM HYD/SIMETH ES 30 ML SUSPENSION UDCUP PO PRN (15:15)
[2025-07-28] MEDS ORDERED: DIVA500T52 PO (16:18)
[2025-07-28] MEDS ORDERED: MELA5TAB40 PO (16:23)
[2025-07-28] MEDS ORDERED: LEVO750T68 PO (16:23)
[2025-07-28] MEDS ORDERED: PANT-31 PO (16:26)
[2025-07-28] MEDS ORDERED: OLAN5TAB94 PO ×2 (16:27→16:28)
[2025-07-28] MEDS: MELATONIN 5 MG TABLET PO SCH (21:00)
[2025-07-28] MEDS: DIVALPROEX SODIUM 500 MG ER TABLET PO SCH (21:00)
[2025-07-28] MEDS: OLANZapine 5 MG RAPDIS TABLET PO SCH (21:00)
[2025-07-29 01:22] VITALS: BP 138/70; PULSE 80; RESP 18; TEMP 97.8
[2025-07-29] MEDS: NALTREXONE HCL 50 MG TABLET PO SCH (08:47)
[2025-07-29] MEDS: FOLIC ACID 1 MG TABLET PO SCH (08:47)
[2025-07-29] MEDS: MULTIVITAMINS WITH MINERALS, THERAPEUTIC TABLET PO SCH (08:47)
[2025-07-29] MEDS: THIAMINE 100 MG TABLET PO SCH (08:48)
[2025-07-29 10:47] VITALS: BP 158/64; PULSE 68; RESP 18; TEMP 97.1; O2SAT 98
[2025-07-29 20:00] VITALS: BP 139/88; PULSE 65; RESP 18; TEMP 97.7; O2SAT 95
[2025-07-29] MEDS: ZOLPIDEM TARTRATE 10 MG TABLET PO PRN (22:54)
[2025-07-30 08:54] VITALS: BP 166/96; PULSE 76; RESP 18; TEMP 97.9; O2SAT 96
[2025-07-30 23:11] VITALS: BP 150/96; PULSE 79; RESP 18; TEMP 97.8; O2SAT 98
[2025-07-30 23:30] VITALS: BP_SYST 146; BP_SYST 150; BP_DIAS 82; BP_DIAS 96; PULSE 79; PULSE 81; RESP 16; RESP 18; TEMP 97.8; TEMP 98.1; O2SAT 97; O2SAT 98
[2025-07-31 12:23] VITALS: BP 137/93; PULSE 82; RESP 17; TEMP 98.6; O2SAT 98
[2025-07-31] MEDS: OLANZapine 5 MG RAPDIS TABLET PO PRN (12:45)
[2025-07-31 22:48] VITALS: RESP 18; O2SAT 98
[2025-08-01 08:00] VITALS: RESP 18; O2SAT 98
[2025-08-01] MEDS: OLANZapine 10 MG RAPDIS TABLET PO SCH (20:53)
[2025-08-01 21:53] VITALS: RESP 18
[2025-08-02 08:46] VITALS: BP 133/79; PULSE 64; RESP 17; TEMP 97.8; O2SAT 97
[2025-08-02 16:50] VITALS: BP 118/57; PULSE 75; RESP 17; TEMP 97; O2SAT 96
[2025-08-02 21:09] VITALS: BP 141/67; PULSE 81; RESP 18; TEMP 97.8
[2025-08-03 08:10] VITALS: BP 138/100; PULSE 79; RESP 17; TEMP 97.7; O2SAT 96
[2025-08-03 20:14] VITALS: RESP 18
[2025-08-03 20:17] VITALS: RESP 18; O2SAT 97
[2025-08-04 10:33] VITALS: BP 130/82; PULSE 70; RESP 18; TEMP 98.2; O2SAT 95
[2025-08-04 16:15] VITALS: BP 127/78; PULSE 89; RESP 18; O2SAT 99
[2025-08-04 20:02] VITALS: BP 112/80; PULSE 70; RESP 18; TEMP 97.6; O2SAT 98
[2025-08-05 10:00] VITALS: BP 165/87; PULSE 66; RESP 17; TEMP 97.5; O2SAT 97
[2025-08-05 16:31] VITALS: BP 131/78; PULSE 76; RESP 18; O2SAT 98
[2025-08-05 20:06] VITALS: BP 114/82; PULSE 64; RESP 18; TEMP 98.5; O2SAT 96
[2025-08-05] MEDS: VALPROIC ACID 250 MG/5 ML SOLUTION UDCUP PO SCH (21:00)
[2025-08-06 08:05] VITALS: BP 140/87; PULSE 63; RESP 18; TEMP 97.9; O2SAT 97
[2025-08-06 09:25] VITALS: BP 114/59; PULSE 75; RESP 17; TEMP 97.9; O2SAT 97
[2025-08-06] MEDS: DENTURE ADHESIVE 68 GM CREAM DT PRN (12:45)
[2025-08-06 20:12] VITALS: BP 137/74; PULSE 62; RESP 18; TEMP 97; O2SAT 98
[2025-08-07 08:00] VITALS: BP 160/91; PULSE 69; RESP 18; TEMP 97.7; O2SAT 96
[2025-08-07] MEDS: VALPROIC ACID 250 MG/5 ML SOLUTION UDCUP PO SCH (09:35)
[2025-08-07 21:02] VITALS: BP 150/72; PULSE 61; RESP 19; TEMP 97.8; O2SAT 97
[2025-08-08 08:00] VITALS: RESP 18
[2025-08-08 22:29] VITALS: RESP 17
[2025-08-08 22:53] VITALS: RESP 18; TEMP 97.8
[2025-08-09 09:12] VITALS: BP 144/77; PULSE 65; RESP 18; TEMP 98; O2SAT 98
[2025-08-09 20:53] VITALS: BP 121/71; PULSE 62; RESP 16; TEMP 97.7; O2SAT 16
[2025-08-10 08:22] VITALS: BP 139/74; PULSE 58; RESP 18; TEMP 97.6; O2SAT 100
[2025-08-10 09:15] LABS: ASPARTATE AMINOTRANSFERASE 12 U/L (15-37); CALCIUM, TOTAL 8.3 mg/dL (8.8-10.5); CREATININE 0.85 mg/dL (0.60-1.30); GLOMERULAR FILTR. RATE CALC > 60 mL/min (>60); GLUCOSE,RANDOM 124 mg/dL (70-110); SODIUM SERUM 142 mmol/L (136-145); TOTAL PROTEIN, SERUM 6.0 g/dL (6.4-8.2); UREA NITROGEN, BLOOD 22 mg/dL (7-18)
[2025-08-10 11:28] VITALS: BP 139/74; PULSE 58; RESP 18; TEMP 97.6; O2SAT 100
[2025-08-10 20:14] VITALS: BP 126/90; PULSE 68; RESP 16; TEMP 98.5; O2SAT 97
[2025-08-11 08:20] VITALS: BP 141/82; PULSE 62; RESP 17; TEMP 97.6; O2SAT 100
[2025-08-11 21:37] VITALS: BP 132/71; PULSE 61; RESP 18; TEMP 98.1; O2SAT 95
[2025-08-12 08:27] VITALS: BP 115/76; PULSE 60; RESP 18; TEMP 97.2; O2SAT 96
[2025-08-12 16:58] VITALS: BP 154/92; PULSE 63; RESP 18; TEMP 97; O2SAT 95
[2025-08-12 22:03] VITALS: BP 129/86; PULSE 65; RESP 18; O2SAT 96
[2025-08-13 09:22] VITALS: BP 144/69; PULSE 61; RESP 18; TEMP 98; O2SAT 100
[2025-08-13 21:21] VITALS: BP 130/80; PULSE 70; RESP 19; TEMP 98.3; O2SAT 97
[2025-08-14 08:35] VITALS: BP 131/88; PULSE 61; RESP 16; TEMP 98; O2SAT 96
[2025-08-14 20:18] VITALS: BP 106/53; PULSE 72; RESP 17; TEMP 97.5; O2SAT 97
[2025-08-15 09:22] VITALS: BP 145/83; PULSE 67; RESP 18; TEMP 98.4; O2SAT 95
[2025-08-15 18:40] VITALS: BP 126/80; PULSE 70; RESP 18; TEMP 98.1; O2SAT 97
[2025-08-15 23:23] VITALS: BP 130/82; PULSE 73; RESP 17; TEMP 97.6; O2SAT 98
[2025-08-16 08:15] VITALS: RESP 18
[2025-08-17 00:41] VITALS: RESP 17
[2025-08-17 08:30] VITALS: RESP 18
[2025-08-17 20:45] VITALS: BP 125/74; PULSE 64; RESP 18; TEMP 97.5
[2025-08-17] MEDS: OLANZapine 5 MG RAPDIS TABLET PO ONE (22:00)
[2025-08-18] MEDS: OLANZapine 5 MG RAPDIS TABLET PO ONE (00:48)
[2025-08-18] MEDS: OLANZapine 5 MG RAPDIS TABLET PO SCH (09:00)
[2025-08-18 22:03] VITALS: RESP 18
[2025-08-19 08:37] VITALS: BP 134/72; PULSE 60; RESP 18; TEMP 97.9; O2SAT 99
[2025-08-19] MEDS: OLANZapine 5 MG RAPDIS TABLET PO SCH (09:00)
[2025-08-19 20:40] VITALS: BP 135/81; PULSE 63; RESP 18; TEMP 98.1; O2SAT 95
[2025-08-20 08:09] VITALS: BP 129/88; PULSE 57; RESP 18; TEMP 98.7; O2SAT 95
[2025-08-21 08:02] VITALS: RESP 17
[2025-08-21 21:00] VITALS: BP 129/68; PULSE 73; RESP 18; TEMP 98.4; O2SAT 98
[2025-08-22 09:44] VITALS: BP 143/97; PULSE 61; RESP 19; TEMP 97.3; O2SAT 96
[2025-08-22 20:33] VITALS: BP 107/63; PULSE 65; RESP 19; TEMP 97.9; O2SAT 97
[2025-08-23 09:10] VITALS: BP 123/77; PULSE 55; RESP 18; TEMP 97; O2SAT 96
[2025-08-23 20:41] VITALS: BP 118/74; PULSE 61; RESP 18; TEMP 98.1; O2SAT 97
[2025-08-23] MEDS: OLANZapine 10 MG RAPDIS TABLET PO SCH (21:16)
[2025-08-24 03:43] VITALS: RESP 18
[2025-08-24] MEDS: ACETAMINOPHEN 325 MG TABLET PO PRN (03:51)
[2025-08-24 10:56] VITALS: BP 147/76; PULSE 97; RESP 18; TEMP 98; O2SAT 98
[2025-08-24 21:49] VITALS: BP 134/79; PULSE 59; RESP 18; TEMP 98.1; O2SAT 99
[2025-08-25 10:20] VITALS: BP 127/81; PULSE 81; RESP 18; TEMP 97.8; O2SAT 98
[2025-08-25 10:24] VITALS: BP 97/58
[2025-08-25 10:25] VITALS: BP 152/92
[2025-08-25 16:40] VITALS: BP 145/85
[2025-08-25] MEDS ORDERED: VALP250S23 PO (17:00)
[2025-08-25] MEDS ORDERED: OLAN10TA26 PO (17:00)
[2025-08-25] MEDS ORDERED: ALBUTEROL SULFATE HFA 90 MCG/PUFF 8 GM INHALER IH PRN (17:45)
[2025-08-25 20:20] VITALS: BP 142/80; PULSE 68; RESP 18; TEMP 98.2; O2SAT 95
[2025-08-26 10:01] VITALS: RESP 18
[2025-08-26 21:39] VITALS: RESP 18
[2025-08-27 08:05] VITALS: BP 142/87; PULSE 72; RESP 18; TEMP 98
[2025-08-27] MEDS ORDERED: MULT-1303 PO (09:51)
[2025-08-27] MEDS ORDERED: CARV12 PO (10:04)
== END 2025-08-27 17:05 | DRG 885 ==
LOC: 3EX 22:57
PROVIDERS: ADMIT Psychiatry & Neurology Psychiatry; ATTEND Psychiatry & Neurology Psychiatry
PROC: GZHZZZZ Group Psychotherapy (ICD-10-PCS; principal; 2025-07-29)
PROC: GZ58ZZZ Individual Psychotherapy, Cognitive-Behavioral (ICD-10-PCS; 2025-07-29)
PROC: GZ56ZZZ Individual Psychotherapy, Supportive (ICD-10-PCS; 2025-08-01)
DX: F25.0 Schizoaffective disorder, bipolar type (principal); L03.90 Cellulitis, unspecified; Z59.00 Homelessness unspecified; F17.200 Nicotine dependence, unspecified, uncomplicated; I10 Essential (primary) hypertension; J44.9 Chronic obstructive pulmonary disease, unspecified; M25.562 Pain in left knee; M25.561 Pain in right knee; I48.91 Unspecified atrial fibrillation; G40.409 Other generalized epilepsy and epileptic syndromes, not intractable, without status epilepticus; F43.10 Post-traumatic stress disorder, unspecified; G89.29 Other chronic pain; M54.9 Dorsalgia, unspecified; F19.10 Other psychoactive substance abuse, uncomplicated; Z60.8 Other problems related to social environment; Z63.9 Problem related to primary support group, unspecified; Z65.3 Problems related to other legal circumstances; Z55.9 Problems related to education and literacy, unspecified; Z59.9 Problem related to housing and economic circumstances, unspecified; Z88.8 Allergy status to other drugs, medicaments and biological substances; Z91.148 Patient's other noncompliance with medication regimen for other reason
CPT/HCPCS: 80053; 80164; 87081; 97116; 97162; 97167; 97530; 97535; G0378